=== PATIENT | male | born 1945 | race Caucasian/White ===

== ENCOUNTER 2017-03-11 00:56 | Observation (INO) | payer OTHER ==
[2017-03-11] MEDS ORDERED: Sodium Chloride 0.9% 1,000 ML IV ONE (01:10)
--- NOTE | 2017-03-11 01:10 | EDM.PDOC ---
ED HPI GENERAL MEDICAL PROBLEM - General Chief Complaint: Diabetic Complaint Stated Complaint: DIABETIC PROBLEMS Time Seen by Provider: 03/11/17 01:08 Source of Information: Reports: Patient - History of Present Illness INITIAL COMMENTS - FREE TEXT/NARRATIVE: HISTORY AND PHYSICAL: History of present illness: [] Patient presents via [facility] ambulance Was found unresponsive or altered blood in his yard he was working on some equipment, howard s known diabetic, apparently his family tried giving him Mountain Dew, on EMS arrival his glucose was 89. On glucose rechecked during the ride here from [facility] his glucose dipped to 39 and he was provided one amp of D50, glucose is 18 is on arrival Patient is alert and nonfocal at this time however is somewhat confused Review of systems: As per history of present illness and below otherwise all systems reviewed and negative. Past medical history: As per history of present illness and as reviewed below otherwise noncontributory. Surgical history: As per history of present illness and as reviewed below otherwise noncontributory. Social history: No reported history of drug or alcohol abuse. Family history: As per history of present illness and as reviewed below otherwise noncontributory. Physical exam: HEENT: Atraumatic, normocephalic, pupils reactive, negative for conjunctival pallor or scleral icterus, mucous membranes moist, throat clear, neck supple, nontender, trachea midline. Lungs: Clear to auscultation, breath sounds equal bilaterally, chest nontender. Heart: S1S2, regular, negative for clicks, rubs, or JVD. Abdomen: Soft, nondistended, nontender. Negative for masses or hepatosplenomegaly. Negative for costovertebral tenderness. Pelvis: Stable nontender. Genitourinary: Deferred. Rectal: Deferred. Extremities: Atraumatic, negative for cords or calf pain. Neurovascular unremarkable. Neuro: Awake, alert, oriented. Cranial nerves II through XII unremarkable. Cerebellum unremarkable. Motor and sensory unremarkable throughout. Exam nonfocal. Diagnostics: [] Lab as below EKG Chest one view Head CT no contrast Therapeutics: [] Liter normal saline bolus orange juice Impression: [] Hypoglycemia chronic histroy at baseline Definitive disposition and diagnosis as appropriate pending reevaluation and review of above. - Related Data Allergies Allergy/AdvReac Type Severity Reaction Status Date / Time latanoprost Allergy Cannot Verified 03/11/17 01:09 Remember latex Allergy Rash Uncoded 03/11/17 01:09 Home Meds: Home Meds Aspirin [Ecotrin] 1 tab PO DAILY 10/16/14 [History] Bimatoprost [Lumigan 0.03% Ophth Soln] 1 drop EYEBOTH BEDTIME 10/16/14 [History] Gabapentin [Neurontin] 300 mg PO 5XDAY 10/16/14 [History] Insulin Aspart [NovoLOG] 5 units SQ TIDMEALS 10/16/14 [History] Insulin Glarg,Human.Rec.Analog [Lantus] 35 units SQ BEDTIME 10/16/14 [History] Lisinopril 20 mg PO DAILY 10/16/14 [History] Metoprolol Tartrate 25 mg PO DAILY 10/16/14 [History] Omeprazole 20 mg PO DAILY PRN 10/16/14 [History] Sertraline [Zoloft] 50 mg PO DAILY 10/16/14 [History] Warfarin [Coumadin] 5 mg PO ASDIRECTED 10/16/14 [History] Warfarin [Coumadin] 7.5 mg PO ASDIRECTED 10/16/14 [History] atorvaSTATin [Lipitor] 40 mg PO BEDTIME 10/16/14 [History] Dorzolamide HCl/Timolol Maleat [Dorzolamide-Timolol Eye Drops] 1 drop OP BID [History] Ibuprofen 200 mg PO ASDIRECTED PRN 09/14/15 [History] Loratadine 10 mg PO DAILY PRN 09/14/15 [History] Polyvinyl Alcohol/Povidone [Artificial Tears Drops] 1 drop OP QID 09/14/15 [ History] Sildenafil [Viagra] 100 mg PO ASDIRECTED PRN 09/14/15 [History] Furosemide 10 mg PO DAILY 03/11/17 [History] Iron 65 mg PO DAILY 03/11/17 [History] Potassium Bicarbonate/Cit Ac [Potassium 25 Meq Tablet Eff] 20 meq PO DAILY 03/11 [History] Past Medical History - Past Health History Medical/Surgical History: Denies Medical/Surgical History Other Cardiovascular History: stent - Past Surgical History Other HEENT Surgeries/Procedures: eye surgery Social & Family History - Tobacco Use Smoking Status *Q: Never Smoker Second Hand Smoke Exposure: No - Alcohol Use Days Per Week of Alcohol Use: 1 Number of Drinks Per Day: 1 Total Drinks Per Week: 1 - Recreational Drug Use Recreational Drug Use: No ED ROS GENERAL - Review of Systems Review Of Systems: See Below ED EXAM GENERAL NO PERIP PULSE - Physical Exam Exam: See Below Course - Vital Signs Last Recorded V/S: Last Vital Signs Temp 35.7 C 03/11/17 02:28 Pulse 63 03/11/17 02:58 Resp 19 03/11/17 02:58 BP 154/85 H 03/11/17 02:58 Pulse Ox 95 03/11/17 02:58 - Orders/Labs/Meds Orders: Active Orders 24 hr Category Date Time Status Admission Status [Patient Status] [ADT] Stat ADT 03/11/17 03:25 Ordered EKG Documentation Completion [RC] STAT Care 03/11/17 01:06 Active Chest 1V Frontal [CR] Stat Exams 03/11/17 01:06 Taken Head wo Cont [CT] Stat Exams 03/11/17 01:06 Taken DRUG SCREEN, URINE [URCHEM] Stat Lab 03/11/17 01:06 Uncollected UA W/MICROSCOPIC [URIN] Stat Lab 03/11/17 01:06 Uncollected Sodium Chloride 0.9% [Normal Saline] 1,000 ml Med 03/11/17 03:30 Ordered IV STAT Medication Orders Sodium Chloride (Normal Saline) 1,000 mls @ 125 mls/hr IV STAT LILIANE Labs: Laboratory Tests 03/11/17 03/11/17 03/11/17 Range/Units 01:15 01:17 01:19 WBC 4.55 (4.0-11.0) K/uL RBC 3.86 L (4.50-5.90) M/uL Hgb 12.2 L (13.0-17.0) g/dL Hct 38.4 (38.0-50.0) % MCV 99.5 H (80.0-98.0) fL MCH 31.6 (27.0-32.0) pg MCHC 31.8 (31.0-37.0) g/dL RDW Std Deviation 52.7 (28.0-62.0) fl RDW Coeff of Juan 15 (11.0-15.0) % Plt Count 178 (150-400) K/uL MPV 10.40 (7.40-12.00) fL Neut % (Auto) 72.0 (48.0-80.0) % Lymph % (Auto) 12.3 L (16.0-40.0) % Forrest % (Auto) 13.8 (0.0-15.0) % Eos % (Auto) 1.5 (0.0-7.0) % Baso % (Auto) 0.4 (0.0-1.5) % Neut # (Auto) 3.3 (1.4-5.7) K/uL Lymph # (Auto) 0.6 (0.6-2.4) K/uL Forrest # (Auto) 0.6 (0.0-0.8) K/uL Eos # (Auto) 0.1 (0.0-0.7) K/uL Baso # (Auto) 0.0 (0.0-0.1) K/uL INR 2.34 H (0.86-1.11) Sodium (136-146) mmol/L Potassium (3.5-5.1) mmol/L Chloride (98-110) mmol/L Carbon Dioxide (21-31) mmol/L BUN (6.0-23.0) mg/dL Creatinine (0.6-1.5) mg/dL Est Cr Clr Drug Dosing mL/min Estimated GFR (MDRD) ml/min Glucose (60-110) mg/dL POC Glucose (60-110) mg/dL Calcium (8.8-10.8) mg/dL Total Bilirubin (0.1-1.5) mg/dL AST (5-40) IU/L ALT (8-54) IU/L Alkaline Phosphatase (40-150) Troponin I (0.0-0.29) NG/ML B-Natriuretic Peptide 662 H (<100) PG/ML Total Protein (6.0-8.0) g/dL Albumin (3.4-4.8) g/dL Globulin (2.0-3.5) g/dL Albumin/Globulin Ratio (1.3-2.8) Ethyl Alcohol mg/dL 03/11/17 03/11/17 03/11/17 Range/Units 01:19 01:19 01:46 WBC (4.0-11.0) K/uL RBC (4.50-5.90) M/uL Hgb (13.0-17.0) g/dL Hct (38.0-50.0) % MCV (80.0-98.0) fL MCH (27.0-32.0) pg MCHC (31.0-37.0) g/dL RDW Std Deviation (28.0-62.0) fl RDW Coeff of Juan (11.0-15.0) % Plt Count (150-400) K/uL MPV (7.40-12.00) fL Neut % (Auto) (48.0-80.0) % Lymph % (Auto) (16.0-40.0) % Forrest % (Auto) (0.0-15.0) % Eos % (Auto) (0.0-7.0) % Baso % (Auto) (0.0-1.5) % Neut # (Auto) (1.4-5.7) K/uL Lymph # (Auto) (0.6-2.4) K/uL Forrest # (Auto) (0.0-0.8) K/uL Eos # (Auto) (0.0-0.7) K/uL Baso # (Auto) (0.0-0.1) K/uL INR (0.86-1.11) Sodium 138 (136-146) mmol/L Potassium 4.5 (3.5-5.1) mmol/L Chloride 108 (98-110) mmol/L Carbon Dioxide 21 (21-31) mmol/L BUN 18 (6.0-23.0) mg/dL Creatinine 1.2 (0.6-1.5) mg/dL Est Cr Clr Drug Dosing 61.88 mL/min Estimated GFR (MDRD) > 60.0 ml/min Glucose 119 H (60-110) mg/dL POC Glucose 116 H (60-110) mg/dL Calcium 9.1 (8.8-10.8) mg/dL Total Bilirubin 0.7 (0.1-1.5) mg/dL AST 48 H (5-40) IU/L ALT 43 (8-54) IU/L Alkaline Phosphatase 252 H (40-150) Troponin I < 0.10 (0.0-0.29) NG/ML B-Natriuretic Peptide (<100) PG/ML Total Protein 7.5 (6.0-8.0) g/dL Albumin 4.2 (3.4-4.8) g/dL Globulin 3.3 (2.0-3.5) g/dL Albumin/Globulin Ratio 1.3 (1.3-2.8) Ethyl Alcohol < 10.0 mg/dL 03/11/17 03/11/17 03/11/17 Range/Units 02:23 02:42 03:09 WBC (4.0-11.0) K/uL RBC (4.50-5.90) M/uL Hgb (13.0-17.0) g/dL Hct (38.0-50.0) % MCV (80.0-98.0) fL MCH (27.0-32.0) pg MCHC (31.0-37.0) g/dL RDW Std Deviation (28.0-62.0) fl RDW Coeff of Juan (11.0-15.0) % Plt Count (150-400) K/uL MPV (7.40-12.00) fL Neut % (Auto) (48.0-80.0) % Lymph % (Auto) (16.0-40.0) % Forrest % (Auto) (0.0-15.0) % Eos % (Auto) (0.0-7.0) % Baso % (Auto) (0.0-1.5) % Neut # (Auto) (1.4-5.7) K/uL Lymph # (Auto) (0.6-2.4) K/uL Forrest # (Auto) (0.0-0.8) K/uL Eos # (Auto) (0.0-0.7) K/uL Baso # (Auto) (0.0-0.1) K/uL INR (0.86-1.11) Sodium (136-146) mmol/L Potassium (3.5-5.1) mmol/L Chloride (98-110) mmol/L Carbon Dioxide (21-31) mmol/L BUN (6.0-23.0) mg/dL Creatinine (0.6-1.5) mg/dL Est Cr Clr Drug Dosing mL/min Estimated GFR (MDRD) ml/min Glucose (60-110) mg/dL POC Glucose 68 82 94 (60-110) mg/dL Calcium (8.8-10.8) mg/dL Total Bilirubin (0.1-1.5) mg/dL AST (5-40) IU/L ALT (8-54) IU/L Alkaline Phosphatase (40-150) Troponin I (0.0-0.29) NG/ML B-Natriuretic Peptide (<100) PG/ML Total Protein (6.0-8.0) g/dL Albumin (3.4-4.8) g/dL Globulin (2.0-3.5) g/dL Albumin/Globulin Ratio (1.3-2.8) Ethyl Alcohol mg/dL Meds: Medications Generic Name Dose Route Start Last Admin Trade Name Freq PRN Reason Stop Dose Admin Sodium Chloride 1,000 mls @ 125 mls/hr 03/11/17 03:30 Normal Saline IV STAT LILIANE Discontinued Medications Generic Name Dose Route Start Last Admin Trade Name Freq PRN Reason Stop Dose Admin Dextrose/Water Confirm 03/11/17 01:12 03/11/17 01:14 Dextrose 50% In Water Administered 03/11/17 01:13 50 ml Dose Administration 50 ml .ROUTE .STK-MED ONE Dextrose/Water 50 ml 03/11/17 02:24 Dextrose 50% In Water IVPUSH 03/11/17 02:25 ONETIME ONE Enalaprilat 0.625 mg 03/11/17 02:05 03/11/17 02:17 Vasotec Iv IVPUSH 03/11/17 02:06 0.625 mg NOW STA Administration Sodium Chloride 1,000 mls @ 999 mls/hr 03/11/17 01:10 03/11/17 01:16 Normal Saline IV 03/11/17 02:10 999 mls/hr STAT ONE Administration Departure - Departure Time of Disposition: 03:27 Disposition: Admitted As Inpatient 68 Condition: fair Clinical Impression: Hypoglycemia, Adverse reaction to drug - Discharge Information Referrals: Hallie Carrasco, [facility] [Primary Care Provider] - Forms: ED Department Discharge - My Orders Last 24 Hours: My Active Orders 03/11/17 01:06 EKG Documentation Completion [RC] STAT Chest 1V Frontal [CR] Stat Head wo Cont [CT] Stat DRUG SCREEN, URINE [URCHEM] Stat UA W/MICROSCOPIC [URIN] Stat 03/11/17 03:25 Admission Status [Patient Status] [ADT] Stat 03/11/17 03:30 Sodium Chloride 0.9% [Normal Saline] 1,000 ml IV STAT - Assessment/Plan Last 24 Hours: My Active Orders 03/11/17 01:06 EKG Documentation Completion [RC] STAT Chest 1V Frontal [CR] Stat Head wo Cont [CT] Stat DRUG SCREEN, URINE [URCHEM] Stat UA W/MICROSCOPIC [URIN] Stat 03/11/17 03:25 Admission Status [Patient Status] [ADT] Stat 03/11/17 03:30 Sodium Chloride 0.9% [Normal Saline] 1,000 ml IV STAT
[2017-03-11] MEDS ORDERED: 50% Dextrose in Water 50 ML Syringe ONE (01:12)
[2017-03-11 01:46] LABS: CHLORIDE,CL 108 mmol/L (98-110); SODIUM,NA 138 mmol/L (136-146)
[2017-03-11] MEDS ORDERED: Enalaprilat 1.25 MG/ML SDV IVPUSH STA (02:05)
[2017-03-11] MEDS ORDERED: 50% Dextrose in Water 50 ML Syringe IVPUSH ONE (02:24)
[2017-03-11] MEDS ORDERED: Sodium Chloride 0.9% 1,000 ML IV SCH ×2 (03:30→04:30)
[2017-03-11] MEDS ORDERED: Ibuprofen 200 MG Tab PO PRN (04:40)
[2017-03-11] MEDS ORDERED: Loratadine 10 MG Tab PO PRN (04:40)
[2017-03-11] MEDS: Gabapentin 300 MG Cap PO SCH ×2 (06:48→10:24)
[2017-03-11] MEDS: Polyvinyl Alcohol 1.4% Ophth Soln 15 ML Bottle EYEBOTH SCH ×2 (07:13→11:07)
[2017-03-11] MEDS ORDERED: Furosemide 20 MG Tab PO SCH (09:00)
[2017-03-11] MEDS ORDERED: Metoprolol Tartrate 50 MG Tab PO SCH (09:00)
[2017-03-11] MEDS ORDERED: Potassium Chloride 20 MEQ Tab.ER PO SCH (09:00)
[2017-03-11] MEDS ORDERED: Warfarin 5 MG Tab PO SCH ×2 (09:00→14:00)
[2017-03-11] MEDS ORDERED: Aspirin 81 MG Tab.EC PO SCH (09:00)
[2017-03-11] MEDS ORDERED: Lisinopril 10 MG Tab PO SCH (09:00)
[2017-03-11] MEDS ORDERED: Omeprazole 20 MG Cap.CR PO PRN (09:00)
[2017-03-11] MEDS ORDERED: Ferrous Sulfate 325 MG Tab PO SCH (09:00)
[2017-03-11] MEDS ORDERED: Sertraline 100 MG Tab PO SCH (09:00)
[2017-03-11] MEDS ORDERED: Dorzolamide/Timolol 2%-0.5% Ophth Soln 10 ML Bottle EYEBOTH SCH ×2 (09:00)
[2017-03-11] MEDS ORDERED: Insulin Aspart 100 Units/ML 3 ML Pen SUBCUT STA ×2 (11:13→11:46)
[2017-03-11] MEDS ORDERED: Insulin Glargine,Human Rec. Analog 100 Units/ML 3 ML Pen SUBCUT SCH (12:00)
--- NOTE | 2017-03-11 12:03 | PCM.HP ---
H&P History of Present Illness - General Admit Problem/Dx: Admission Diagnosis/Problem Admission Diagnosis/Problem Hypoglycemia - History of Present Illness Initial Comments - Free Text/Narative: 71 yo male with pmh of diabetes who presented with a hypoglycemic episode. 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 He was found unresponsive in the field. He blood sugar was 89 on EMS arrival and recheck on EMS ride to [facility] was 39.. He received d50. His mentation improved and in the [facility] ED his blood sugar was 94 and he was given juice. He was monitored overnight here in the hospital and did not have any more hypoglycemic episodes. - Related Data Allergies/Adverse Reactions: Allergies Allergy/AdvReac Type Severity Reaction Status Date / Time latanoprost Allergy Cannot Verified 03/11/17 01:09 Remember latex Allergy Rash Uncoded 03/11/17 01:09 Home Medications: Home Meds Aspirin [Ecotrin] 1 tab PO DAILY 10/16/14 [History] Bimatoprost [Lumigan 0.03% Ophth Soln] 1 drop EYEBOTH BEDTIME 10/16/14 [History] Gabapentin [Neurontin] 300 mg PO 5XDAY 10/16/14 [History] Insulin Aspart [NovoLOG] 5 units SQ TIDMEALS 10/16/14 [History] Lisinopril 20 mg PO DAILY 10/16/14 [History] Metoprolol Tartrate 25 mg PO DAILY 10/16/14 [History] Omeprazole 20 mg PO DAILY PRN 10/16/14 [History] Sertraline [Zoloft] 50 mg PO DAILY 10/16/14 [History] Warfarin [Coumadin] 5 mg PO ASDIRECTED 10/16/14 [History] Warfarin [Coumadin] 7.5 mg PO ASDIRECTED 10/16/14 [History] atorvaSTATin [Lipitor] 40 mg PO BEDTIME 10/16/14 [History] Dorzolamide HCl/Timolol Maleat [Dorzolamide-Timolol Eye Drops] 1 drop OP BID [History] Ibuprofen 200 mg PO ASDIRECTED PRN 09/14/15 [History] Loratadine 10 mg PO DAILY PRN 09/14/15 [History] Polyvinyl Alcohol/Povidone [Artificial Tears Drops] 1 drop OP QID 09/14/15 [ History] Sildenafil [Viagra] 100 mg PO ASDIRECTED PRN 09/14/15 [History] Furosemide 10 mg PO DAILY 03/11/17 [History] Insulin Glarg,Human.Rec.Analog [Lantus] 20 units SQ BID #0 03/11/17 [Rx] Iron 65 mg PO DAILY 03/11/17 [History] Potassium Bicarbonate/Cit Ac [Potassium 25 Meq Tablet Eff] 20 meq PO DAILY 03/11 [History] Past Medical History - Past Health History Medical/Surgical History: Denies Medical/Surgical History Cardiovascular History: Reports: High Cholesterol, Hypertension Other Cardiovascular History: stent Endocrine/Metabolic History: Reports: Diabetes, Type I Other Oncologic History: lip CA 40years ago, completed radiation - Infectious Disease History Infectious Disease History: Reports: Chicken Pox - Past Surgical History Other HEENT Surgeries/Procedures: eye surgery Other Cardiovascular Surgeries/Procedures: open heart surgery, valve replacement Social & Family History - Family History Family Medical History: Noncontributory - Tobacco Use Smoking Status *Q: Never Smoker Second Hand Smoke Exposure: No - Caffeine Use Caffeine Use: Reports: Coffee Caffeine Use Comment: 2cups/day - Alcohol Use Days Per Week of Alcohol Use: 1 Number of Drinks Per Day: 1 Total Drinks Per Week: 1 - Recreational Drug Use Recreational Drug Use: No H&P Review of Systems - Review of Systems: Review Of Systems: See Below General: Reports: No Symptoms HEENT: Reports: No Symptoms Pulmonary: Reports: No Symptoms Cardiovascular: Reports: No Symptoms Gastrointestinal: Reports: No Symptoms Genitourinary: Reports: No Symptoms Musculoskeletal: Reports: No Symptoms Skin: Reports: No Symptoms Psychiatric: Reports: No Symptoms Neurological: Reports: No Symptoms Hematologic/Lymphatic: Reports: No Symptoms Immunologic: Reports: No Symptoms Exam - Exam Exam: See Below - Vital Signs Vital Signs: Last Vital Signs Temp 36.7 C 03/11/17 08:00 Pulse 77 03/11/17 08:55 Resp 20 03/11/17 08:00 BP 136/52 L 03/11/17 09:01 Pulse Ox 95 03/11/17 08:00 Weight: 88 kg - Exam General: Alert, Oriented, 4 Lungs: Clear to Auscultation, Normal Respiratory Effort Cardiovascular: Regular Rate, Regular Rhythm Abdomen: No: Tenderness Extremities: Normal Inspection - Patient Data Lab Results last 24 hrs: Laboratory Results - last 24 hr 03/11/17 03/11/17 03/11/17 Range/Units 04:08 04:30 04:30 POC Glucose 245 H (60-110) mg/dL Urine Color YELLOW Urine Appearance CLEAR Urine pH 5.5 (5.0-8.0) Ur Specific [place] 1.020 (1.001-1.035) Urine Protein NEGATIVE (NEGATIVE) mg/dL Urine Glucose (UA) NEGATIVE (NEGATIVE) mg/dL Urine Ketones NEGATIVE (NEGATIVE) mg/dL Urine Occult Blood TRACE-INTACT (NEGATIVE) Urine Nitrite NEGATIVE (NEGATIVE) Urine Bilirubin NEGATIVE (NEGATIVE) Urine Urobilinogen 0.2 (<2.0) EU/dL Ur Leukocyte Esterase NEGATIVE (NEGATIVE) Urine RBC 0-2 (0-2/HPF) Urine WBC 0-1 (0-5/HPF) Ur Epithelial Cells RARE (NONE-FEW) Urine Bacteria RARE (NEGATIVE) Urine Opiates Screen NEGATIVE (NEGATIVE) Ur Oxycodone Screen NEGATIVE (NEGATIVE) Urine Methadone Screen NEGATIVE (NEGATIVE) Ur Barbiturates Screen NEGATIVE (NEGATIVE) Ur Phencyclidine Scrn NEGATIVE (NEGATIVE) Ur Amphetamine Screen NEGATIVE (NEGATIVE) U Methamphetamines Scrn NEGATIVE (NEGATIVE) U Benzodiazepines Scrn NEGATIVE (NEGATIVE) U Cocaine Metab Screen NEGATIVE (NEGATIVE) U Marijuana (THC) Screen NEGATIVE (NEGATIVE) 03/11/17 Range/Units 06:55 POC Glucose 252 H (60-110) mg/dL Urine Color Urine Appearance Urine pH (5.0-8.0) Ur Specific [place] (1.001-1.035) Urine Protein (NEGATIVE) mg/dL Urine Glucose (UA) (NEGATIVE) mg/dL Urine Ketones (NEGATIVE) mg/dL Urine Occult Blood (NEGATIVE) Urine Nitrite (NEGATIVE) Urine Bilirubin (NEGATIVE) Urine Urobilinogen (<2.0) EU/dL Ur Leukocyte Esterase (NEGATIVE) Urine RBC (0-2/HPF) Urine WBC (0-5/HPF) Ur Epithelial Cells (NONE-FEW) Urine Bacteria (NEGATIVE) Urine Opiates Screen (NEGATIVE) Ur Oxycodone Screen (NEGATIVE) Urine Methadone Screen (NEGATIVE) Ur Barbiturates Screen (NEGATIVE) Ur Phencyclidine Scrn (NEGATIVE) Ur Amphetamine Screen (NEGATIVE) U Methamphetamines Scrn (NEGATIVE) U Benzodiazepines Scrn (NEGATIVE) U Cocaine Metab Screen (NEGATIVE) U Marijuana (THC) Screen (NEGATIVE) Result Diagrams: 03/11/17 01:15 03/11/17 01:19 *Q Meaningful Use (ADM) - VTE *Q VTE Criteria *Q: - Stroke *Q Stroke Criteria *Q: - AMI *Q AMI Criteria *Q: Problem List Initiated/Reviewed/Updated: Yes Orders Last 24hrs: Active Orders 24 hr Category Date Time Status Blood Glucose Check, Bedside [RC] Q3H Care 03/11/17 07:00 Active Communication Order [RC] ROUTINE Care 03/11/17 04:18 Active Ready for Discharge [RC] PER UNIT ROUTINE Care 03/11/17 11:49 Active ADA Diabetic [[place] [employer] Diet] [DIET Diet 03/11/17 Breakfast Active ] Aspirin [Halfprin] Med 03/11/17 09:00 Active 81 mg PO DAILY Bimatoprost Med 03/11/17 21:00 Active 1 drop EYEBOTH BEDTIME Ferrous Sulfate Med 03/11/17 09:00 Active 325 mg PO DAILY Furosemide [Lasix] Med 03/11/17 09:00 Active 10 mg PO DAILY Gabapentin [Neurontin] Med 03/11/17 07:00 Active 300 mg PO 5XDAY Ibuprofen [Motrin] Med 03/11/17 04:40 Active 200 mg PO DAILY PRN Insulin Glarg,Human.Rec.Analog [LantUS Solostar] Med 03/11/17 12:00 Active 20 units SUBCUT DAILY Lisinopril [Prinivil] Med 03/11/17 09:00 Active 20 mg PO DAILY Loratadine [Claritin] Med 03/11/17 04:40 Active 10 mg PO DAILY PRN Metoprolol Tartrate [Lopressor] Med 03/11/17 09:00 Active 25 mg PO DAILY Omeprazole Med 03/11/17 09:00 Active 20 mg PO DAILY PRN Patient's Own Medication [Ptom] Med 03/11/17 09:00 Active 0 each EYEBOTH BID Polyvinyl Alcohol [LiquiTears 1.4% Ophth Soln] Med 03/11/17 06:00 Active 0 ml EYEBOTH QID Potassium Chloride [Klor-Con M20] Med 03/11/17 09:00 Active 20 meq PO DAILY Sertraline [Zoloft] Med 03/11/17 09:00 Active 50 mg PO DAILY Sodium Chloride 0.9% [Normal Saline] 1,000 ml Med 03/11/17 04:30 Active IV ASDIRECTED Warfarin [Coumadin] Med 03/11/17 14:00 Active 5 mg PO Q7D@1400 Warfarin [Coumadin] Med 03/12/17 14:00 Active 7.5 mg PO SuMoTuWeThFr@1400 atorvaSTATin [Lipitor] Med 03/11/17 21:00 Active 40 mg PO BEDTIME Medication Orders Artificial Tears (Liquitears 1.4% Ophth Soln) 0 ml EYEBOTH QID [facility] Last Admin: 03/11/17 11:07 Dose: 1 drop Admin: 03/11/17 07:13 Dose: Aspirin (Halfprin) 81 mg PO DAILY [facility] Last Admin: 03/11/17 08:59 Dose: 81 mg Atorvastatin Calcium (Lipitor) 40 mg PO BEDTIME [facility] Ferrous Sulfate (Ferrous Sulfate) 325 mg PO DAILY [facility] Last Admin: 03/11/17 08:58 Dose: 325 mg Furosemide (Lasix) 10 mg PO DAILY [facility] Last Admin: 03/11/17 08:58 Dose: 10 mg Gabapentin (Neurontin) 300 mg PO 5XDAY [facility] Last Admin: 03/11/17 10:24 Dose: 300 mg Admin: 03/11/17 06:48 Dose: 300 mg Sodium Chloride (Normal Saline) 1,000 mls @ 125 mls/hr IV STAT [facility] Last Admin: 03/11/17 03:30 Dose: 125 mls/hr Sodium Chloride (Normal Saline) 1,000 mls @ 125 mls/hr IV ASDIRECTED [facility] Last Admin: 03/11/17 11:54 Dose: 125 mls/hr Ibuprofen (Motrin) 200 mg PO DAILY PRN PRN Reason: Pain Insulin Glargine (Lantus Solostar) 20 units SUBCUT DAILY [facility] Lisinopril (Prinivil) 20 mg PO DAILY [facility] Last Admin: 03/11/17 09:01 Dose: 20 mg Loratadine (Claritin) 10 mg PO DAILY PRN PRN Reason: Allergies Last Admin: 03/11/17 09:28 Dose: 10 mg Metoprolol Tartrate (Lopressor) 25 mg PO DAILY [facility] Last Admin: 03/11/17 08:55 Dose: 25 mg Non-Formulary Medication (Bimatoprost) 1 drop EYEBOTH BEDTIME [facility] Omeprazole (Omeprazole) 20 mg PO DAILY PRN PRN Reason: Abdominal Pain Dorzolamide/Timolol 2%-0.5% Ophth Soln 10 Ml Bottle 0 each EYEBOTH BID [facility] Last Admin: 03/11/17 09:51 Dose: Potassium Chloride (Klor-Con M20) 20 meq PO DAILY [facility] Last Admin: 03/11/17 09:53 Dose: 20 meq Sertraline HCl (Zoloft) 50 mg PO DAILY [facility] Last Admin: 03/11/17 08:59 Dose: 50 mg Warfarin Sodium (Coumadin) 5 mg PO Q7D@1400 [facility] Warfarin Sodium (Coumadin) 7.5 mg PO SuMoTuWeThFr@1400 [facility] Assessment/Plan Comment:: 71 yo male admitted for hypoglycemia from taking premeal insulin without eating. Patient was instructed on proper timing of insulin but he appears to have been doing well with his current regiment of lantus 20 units BID with premeal insulin. He was discharged home.
[2017-03-11 12:50] VITALS: BP 135/55
[2017-03-11] MEDS ORDERED: atorvaSTATin 40 MG Tab PO SCH (21:00)
[2017-03-11] MEDS ORDERED: Non-Formulary Medication 1 Each (Bimatoprost 1 DROP) EYEBOTH SCH (21:00)
[2017-03-12] MEDS ORDERED: Warfarin 2.5 MG Tab PO SCH (14:00)
--- NOTE | 2017-03-13 14:11 | CT ---
EXAM DATE: 03/11/17 PATIENT'S AGE: 71 Patient: IBIS LOPEZ Facility: [place], [place] Site . Site : 1945 Study: CT Head [id number]/20/2017 1:51:23 AM Ordering Physician: Doctor Kemp Final Report: INDICATION: Altered mental status TECHNIQUE: CT Head without i.v. contrast. COMPARISON: 12/26/2014. FINDINGS: CSF spaces: Within normal limits for age. Brain parenchyma: Small focus of encephalomalacia is present in the left frontal lobe and right parietal lobe. 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 Mild diffuse cortical atrophy is noted. There are low attenuation white matter changes, likely due to chronic microvascular disease. The brain parenchyma is normal in appearance with preservation of the alfred-white matter junction. No sign of mass, hemorrhage, or midline shift seen. Skull base and calvarium: The visualized paranasal sinuses are well aerated. The mastoid air cells are clear. The visualized orbits are grossly unremarkable. There is a gas containing band surrounding the left globe which may be due to scleral banding. No skull fractures are seen. IMPRESSION: 1. No evidence of acute infarction, intracranial hemorrhage, or mass effect seen. Dictated by Jase Doyle MD @ 03/11/2017 1:59:29 AM Dictated by: Jase Doyle MD @ 03/11/2017 02:00:39 (Electronic Signature) Report Signed by Proxy. CARLOS
--- NOTE | 2017-03-13 14:12 | CR ---
EXAM DATE: 03/11/17 PATIENT'S AGE: 71 Patient: IBIS LOPEZ Facility: [place], [place] Site . Site : 1945 Study: XRay Chest [id number]/20/2017 1:52:10 AM Ordering Physician: Doctor Kemp Final Report: INDICATION: Altered mental status TECHNIQUE: Chest radiograph 1 view COMPARISON: 09/14/2015. FINDINGS: Cardiovascular and mediastinum: Moderate stable cardiomegaly is present. The mediastinum is normal in appearance. The patient is status post median sternotomy and aortic valve replacement. Lungs and pleural spaces: Diffuse interstitial thickening and Joaquin B lines are present bilaterally. No sign of pleural effusion seen. No pneumothorax is identified. Bones and soft tissues: Displace, nonunited fracture of the mid right clavicle seen without change. IMPRESSION: 1. Diffuse interstitial thickening and Joaquin B lines are present bilaterally. This is compatible with interstitial pulmonary edema. Dictated by Jase Doyle MD @ 03/11/2017 1:56:11 AM Dictated by: Jase Doyle MD @ 03/11/2017 01:56:53 (Electronic Signature) Report Signed by Proxy. [facility]
== END 2017-03-11 12:55 | disposition home or self-care (01) ==
LOC: MW.ED 00:56 → MW.ICU 03:25
PROVIDERS: ADMIT Internal Medicine; ATTEND Internal Medicine
DX: E10.649 Type 1 diabetes mellitus with hypoglycemia without coma (principal); T38.3X5A Adverse effect of insulin and oral hypoglycemic [antidiabetic] drugs, initial encounter; E78.00 Pure hypercholesterolemia, unspecified; I10 Essential (primary) hypertension; Z91.040 Latex allergy status; Z79.01 Long term (current) use of anticoagulants; Z88.8 Allergy status to other drugs, medicaments and biological substances; Z79.82 Long term (current) use of aspirin; Z79.899 Other long term (current) drug therapy; Z85.818 Personal history of malignant neoplasm of other sites of lip, oral cavity, and pharynx; Z95.2 Presence of prosthetic heart valve; Z98.890 Other specified postprocedural states
CPT/HCPCS: 36415; 70450; 71010; 80053; 80305; 81001; 82962; 83880; 84484; 85025; 85610; 93005; 96361; 96374; 99285; A9270; G0378; G0480; J1815; J7040; J7060

== ENCOUNTER 2017-03-30 16:23 | Emergency (ER) | payer OTHER ==
--- NOTE | 2017-03-30 17:02 | EDM.PDOC ---
ED HPI GENERAL MEDICAL PROBLEM - General Chief Complaint: Lower Extremity Injury/Pain Stated Complaint: PT HAS LUMP ON LT LEG Time Seen by Provider: 03/30/17 16:52 Source of Information: Reports: Patient History Limitations: Reports: No Limitations - History of Present Illness INITIAL COMMENTS - FREE TEXT/NARRATIVE: HISTORY AND PHYSICAL: []71-year-old male presents with a "lump to his leg". Patient was sent from the [place] facility for evaluation History of Present Illness: [A couple weeks have gone by where this gentleman has noticed pain to his left leg now slight edema is present Chronic medical history includes #1 chromic chronic hypochromic anemia #2 depression #3 residential current use of anticoagulant warfarin No. 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 ] Review of Systems: As per history of present illness and below otherwise all systems reviewed and negative. Past medical history: As per history of present illness and as reviewed below otherwise noncontributory. Surgical history: As per history of present illness and as reviewed below otherwise noncontributory. Social history: No reported history of drug or alcohol abuse. Family history: As per history of present illness and as reviewed below otherwise noncontributory. Physical exam: Alert and oriented gentleman. is at bedside. Questions are answered appropriately. HEENT: Atraumatic, normocehpalic, pupils reactive, negative for conjunctival pallor or scleral icterus, mucous membranes moist, throat clear, neck supple, nontender, trachea midline. Lungs: Clear to auscultation, breath sounds equal bilaterally, chest non tender. Heart: S1S2, regular, negative for clicks, rubs, or JVD. Abdomen: Soft, nondistended, nontender. Negative for masses or hepatossplenmegaly. Negative for costovertebral tenderness. Pelvis: Stable nontender. Genitourinary: Deferred. Rectal: Deferred Extremities: Atraumatic, negative for cords or calf pain. Left inner leg from knee I has some erythema. Skin feels thickened. Pedal pulses are palpable Neurovascular unremarkable. Neuro: Awake, alert, oriented. Cranial nerves II through XII unremarkable. Cerebellum unremarkable. Motor and sensory unremarkable throughout. Exam nonfocal. Discussed with patient and his that there is no deep vein thrombosis. Cellulitis is a concern and he has had that in the past. Diagnostics: [Ultrasound left lower leg negative for DVT ] Therapeutics: [Rocephin IV] Impression: [Acute cellulitis] Plan: [Cephalexin 500 mg 3 times a day for the next 10 days Follow-up with your regular provider next week on Monday. Call tomorrow for an appointment] Definitive disposition and diagnosis as appropriate pending reevaluation and review of above. Onset: Gradual Duration: Day(s): Location: Reports: Lower Extremity, Left Quality: Reports: Ache Severity: Moderate Improves with: Reports: None Worsens with: Reports: None Context: Reports: Activity - Related Data Allergies Allergy/AdvReac Type Severity Reaction Status Date / Time latanoprost Allergy Cannot Verified 03/30/17 16:45 Remember latex Allergy Rash Uncoded 03/30/17 16:45 Home Meds: Home Meds Aspirin [Ecotrin] 1 tab PO DAILY 10/16/14 [History] Bimatoprost [Lumigan 0.03% Ophth Soln] 1 drop EYEBOTH BEDTIME 10/16/14 [History] Gabapentin [Neurontin] 300 mg PO DAY 10/16/14 [History] Insulin Aspart [NovoLOG] 5 units SQ TIDMEALS 10/16/14 [History] Lisinopril 20 mg PO DAILY 10/16/14 [History] Metoprolol Tartrate 25 mg PO DAILY 10/16/14 [History] Omeprazole 20 mg PO DAILY PRN 10/16/14 [History] Sertraline [Zoloft] 50 mg PO DAILY 10/16/14 [History] Warfarin [Coumadin] 5 mg PO ASDIRECTED 10/16/14 [History] Warfarin [Coumadin] 7.5 mg PO ASDIRECTED 10/16/14 [History] atorvaSTATin [Lipitor] 40 mg PO BEDTIME 10/16/14 [History] Dorzolamide HCl/Timolol Maleat [Dorzolamide-Timolol Eye Drops] 1 drop OP BID [History] Ibuprofen 200 mg PO ASDIRECTED PRN 09/14/15 [History] Loratadine 10 mg PO DAILY PRN 09/14/15 [History] Polyvinyl Alcohol/Povidone [Artificial Tears Drops] 1 drop OP QID 09/14/15 [ History] Sildenafil [Viagra] 100 mg PO ASDIRECTED PRN 09/14/15 [History] Furosemide 10 mg PO DAILY 03/11/17 [History] Insulin Glarg,Human.Rec.Analog [Lantus] 20 units SQ BID #0 03/11/17 [Rx] Iron 65 mg PO DAILY 03/11/17 [History] Potassium Bicarbonate/Cit Ac [Potassium 25 Meq Tablet Eff] 20 meq PO DAILY 03/11 [History] Past Medical History - Past Health History Medical/Surgical History: Denies Medical/Surgical History HEENT History: Reports: Impaired Vision, Retinal Detachment, Other (See Below) Other HEENT History: Blind in left eye Cardiovascular History: Reports: High Cholesterol, Hypertension, Stents Other Cardiovascular History: stent Respiratory History: Reports: None Gastrointestinal History: Reports: None Genitourinary History: Reports: None Musculoskeletal History: Reports: None Neurological History: Reports: None Psychiatric History: Reports: None Endocrine/Metabolic History: Reports: Diabetes, Type I Hematologic History: Reports: None Immunologic History: Reports: None Oncologic (Cancer) History: Reports: Other (See Below) Other Oncologic History: Lip CA 40 years ago, completed radiation Dermatologic History: Reports: None - Infectious Disease History Infectious Disease History: Reports: None - Past Surgical History Head Surgeries/Procedures: Reports: None HEENT Surgical History: Reports: Other (See Below) Other HEENT Surgeries/Procedures: eye surgery Cardiovascular Surgical History: Reports: Other (See Below) Other Cardiovascular Surgeries/Procedures: open heart surgery, valve replacement Respiratory Surgical History: Reports: None GI Surgical History: Reports: None Male Surgical History: Reports: None Endocrine Surgical History: Reports: None Neurological Surgical History: Reports: None Musculoskeletal Surgical History: Reports: None Dermatological Surgical History: Reports: None Social & Family History - Family History Family Medical History: Noncontributory - Tobacco Use Smoking Status *Q: Never Smoker Second Hand Smoke Exposure: No - Caffeine Use Caffeine Use: Reports: Coffee Caffeine Use Comment: 2cups/day - Alcohol Use Days Per Week of Alcohol Use: 1 Number of Drinks Per Day: 1 Total Drinks Per Week: 1 - Recreational Drug Use Recreational Drug Use: No Review of Systems - Review of Systems Review Of Systems: ROS reveals no pertinent complaints other than HPI. ED EXAM, GENERAL - Physical Exam Exam: See Below (see dictation) Course - Vital Signs Last Recorded V/S: Last Vital Signs Temp 36.6 C 03/30/17 16:41 Pulse 87 03/30/17 16:41 Resp 16 03/30/17 16:41 BP 105/61 03/30/17 16:41 Pulse Ox 98 03/30/17 16:41 - Orders/Labs/Meds Orders: Active Orders 24 hr Category Date Time Status Venous Doppler Lwr Ext Lt [US] Stat Exams 03/30/17 17:08 Taken Sodium Chloride 0.9% [Saline Flush] Med 03/30/17 17:04 Active 10 ml FLUSH ASDIRECTED PRN Sodium Chloride 0.9% [Saline Flush] Med 03/30/17 17:04 Active 2.5 ml FLUSH ASDIRECTED PRN Saline Lock Insert [OM.PC] Stat Oth 03/30/17 17:04 Ordered Medication Orders Sodium Chloride (Saline Flush) 10 ml FLUSH ASDIRECTED PRN PRN Reason: Keep Vein Open Last Admin: 03/30/17 17:27 Dose: 10 ml Sodium Chloride (Saline Flush) 2.5 ml FLUSH ASDIRECTED PRN PRN Reason: Keep Vein Open Last Admin: 03/30/17 17:27 Dose: 2.5 ml Labs: Laboratory Tests 03/30/17 03/30/17 Range/Units 17:20 17:20 WBC 4.04 (4.0-11.0) K/uL RBC 3.56 L (4.50-5.90) M/uL Hgb 11.0 L (13.0-17.0) g/dL Hct 34.7 L (38.0-50.0) % MCV 97.5 (80.0-98.0) fL MCH 30.9 (27.0-32.0) pg MCHC 31.7 (31.0-37.0) g/dL RDW Std Deviation 54.6 (28.0-62.0) fl RDW Coeff of Juan 15 (11.0-15.0) % Plt Count 133 L (150-400) K/uL MPV 9.90 (7.40-12.00) fL Neut % (Auto) 68.0 (48.0-80.0) % Lymph % (Auto) 16.6 (16.0-40.0) % [place] % (Auto) 9.9 (0.0-15.0) % Eos % (Auto) 5.0 (0.0-7.0) % Baso % (Auto) 0.5 (0.0-1.5) % Neut # (Auto) 2.8 (1.4-5.7) K/uL Lymph # (Auto) 0.7 (0.6-2.4) K/uL [place] # (Auto) 0.4 (0.0-0.8) K/uL Eos # (Auto) 0.2 (0.0-0.7) K/uL Baso # (Auto) 0.0 (0.0-0.1) K/uL Nucleated RBC % 0.0 /100WBC Nucleated RBCs # 0 K/uL Sodium 137 (136-146) mmol/L Potassium 4.4 (3.5-5.1) mmol/L Chloride 108 (98-110) mmol/L Carbon Dioxide 20 L (21-31) mmol/L BUN 27 H (6.0-23.0) mg/dL Creatinine 1.5 (0.6-1.5) mg/dL Est Cr Clr Drug Dosing 51.09 mL/min Estimated GFR (MDRD) 46.4 ml/min Glucose 200 H (60-110) mg/dL Calcium 8.1 L (8.8-10.8) mg/dL Total Bilirubin 1.0 (0.1-1.5) mg/dL AST 41 H (5-40) IU/L ALT 38 (8-54) IU/L Alkaline Phosphatase 252 H (40-150) Total Protein 6.4 (6.0-8.0) g/dL Albumin 3.6 (3.4-4.8) g/dL Globulin 2.8 (2.0-3.5) g/dL Albumin/Globulin Ratio 1.3 (1.3-2.8) Meds: Medications Generic Name Dose Route Start Last Admin Trade Name Freq PRN Reason Stop Dose Admin Sodium Chloride 10 ml 03/30/17 17:04 03/30/17 17:27 Saline Flush FLUSH 10 ml ASDIRECTED PRN Administration Keep Vein Open Sodium Chloride 2.5 ml 03/30/17 17:04 03/30/17 17:27 Saline Flush FLUSH 2.5 ml ASDIRECTED PRN Administration Keep Vein Open Discontinued Medications Generic Name Dose Route Start Last Admin Trade Name Krys PRN Reason Stop Dose Admin Ceftriaxone Sodium/Dextrose 1 50 mls @ 100 mls/hr 03/30/17 17:04 03/30/17 17: 27 gm/ Premix IV 03/30/17 17:33 100 mls/hr ONETIME ONE Administration Departure - Departure Time of Disposition: 18:40 Disposition: Home, Self-Care 01 Condition: good Clinical Impression: Cellulitis of left leg without foot - Discharge Information Forms: ED Department Discharge Additional Instructions: The following information is given to patients seen in the emergency department who are being discharged to home. This information is to outline your options for follow-up care. We provide all patients seen in our emergency department with a follow-up referral. The need for follow-up, as well as the timing and circumstances, are variable depending upon the specifics of your emergency department visit. If you don't have a primary care physician on staff, we will provide you with a referral. We always advise you to contact your personal physician following an emergency department visit to inform them of the circumstance of the visit and for follow-up with them and/or the need for any referrals to a consulting specialist. The emergency department will also refer you to a specialist when appropriate. This referral assures that you have the opportunity for followup care with a specialist. All of these measure are taken in an effort to provide you with optimal care, which includes your followup. Under all circumstances we always encourage you to contact your private physician who remains a resource for coordinating your care. When calling for followup care, please make the office aware that this follow-up is from your recent emergency room visit. If for any reason you are refused follow-up, please contact the [facility] emergency department at and asked to speak to the emergency department charge nurse. Prescription will be written for cephalexin and sent to [place] [facility] Follow-up with your primary care provider Monday, April 03, 2017 - My Orders Last 24 Hours: My Active Orders 03/30/17 17:04 Sodium Chloride 0.9% [Saline Flush] 10 ml FLUSH ASDIRECTED PRN Sodium Chloride 0.9% [Saline Flush] 2.5 ml FLUSH ASDIRECTED PRN Saline Lock Insert [OM.PC] Stat 03/30/17 17:08 Venous Doppler Lwr Ext Lt [US] Stat - Assessment/Plan Last 24 Hours: My Active Orders 03/30/17 17:04 Sodium Chloride 0.9% [Saline Flush] 10 ml FLUSH ASDIRECTED PRN Sodium Chloride 0.9% [Saline Flush] 2.5 ml FLUSH ASDIRECTED PRN Saline Lock Insert [OM.PC] Stat 03/30/17 17:08 Venous Doppler Lwr Ext Lt [US] Stat
[2017-03-30] MEDS ORDERED: cefTRIAXone 1 GM in Premix Bag 1 BAG IV ONE (17:04)
[2017-03-30] MEDS ORDERED: Sodium Chloride 0.9% 2.5 ML Syringe FLUSH PRN (17:04)
[2017-03-30] MEDS ORDERED: Sodium Chloride 0.9% 10 ML Syringe FLUSH PRN (17:04)
[2017-03-30 18:51] VITALS: BP 109/60
--- NOTE | 2017-03-31 10:56 | US ---
EXAM DATE: 03/30/17 PATIENT'S AGE: 71 Patient: IBIS LOPEZ Facility: [place], [place] Site . Site : 1945 Study: US Extremity Venous left [id number] 6:03:18 PM Ordering Physician: Doctor Kemp Final Report: INDICATION: LT LEG PAIN AND SWELLING TECHNIQUE: Ultrasound venous duplex lower left extremity. Compression venous exam was performed using alfred-scale, color Doppler, and spectral Doppler analysis. COMPARISON: None FINDINGS: Sonographic imaging demonstrates the left common femoral, deep femoral, superficial femoral, popliteal, posterior tibial and greater saphenous and the contralateral right common femoral veins to be fully compressible with normal color Doppler blood flow. Nonspecific subcutaneous edema. IMPRESSION: No evidence of deep venous thrombosis within the left lower extremity. Dictated by Phong Muñoz MD @ 03/30/2017 6:14:12 PM Dictated by: Phong Muñoz MD @ 03/30/2017 18:14:16 (Electronic Signature) Report Signed by Proxy. [facility]LAND HOSPITALEvelyn
== END 2017-03-30 18:53 | disposition home or self-care (01) ==
LOC: MW.ED 16:23
DX: L03.116 Cellulitis of left lower limb (principal); I10 Essential (primary) hypertension; E78.00 Pure hypercholesterolemia, unspecified; E10.9 Type 1 diabetes mellitus without complications; Z95.2 Presence of prosthetic heart valve; Z98.890 Other specified postprocedural states; Z85.819 Personal history of malignant neoplasm of unspecified site of lip, oral cavity, and pharynx; Z79.82 Long term (current) use of aspirin; Z79.01 Long term (current) use of anticoagulants; Z79.899 Other long term (current) drug therapy; Z91.040 Latex allergy status; Z91.09 Other allergy status, other than to drugs and biological substances
CPT/HCPCS: 36415; 80053; 85025; 93971; 96365; 99284; J0696; 99283

== ENCOUNTER 2017-08-22 11:49 | Emergency (ER) | payer OTHER ==
--- NOTE | 2017-08-22 13:10 | EDM.PDOC ---
ED HPI GENERAL MEDICAL PROBLEM - General Chief Complaint: General Stated Complaint: PT HIGH Time Seen by Provider: 08/22/17 11:51 Source of Information: Reports: Patient History Limitations: Reports: No Limitations - History of Present Illness INITIAL COMMENTS - FREE TEXT/NARRATIVE: History of present illness: [72-year-old male presenting to the ED with concerns of a long PT time. Patient is on an anticoagulant and [facility] his [facility]racted PT/INR] Review of systems: As per history of present illness and below otherwise all systems reviewed and negative. Past medical history: As per history of present illness and as reviewed below otherwise noncontributory. Surgical history: As per history of present illness and as reviewed below otherwise noncontributory. Social history: No reported history of drug or alcohol abuse. Family history: As per history of present illness and as reviewed below otherwise noncontributory. Physical exam: HEENT: Atraumatic, normocephalic, pupils reactive, negative for conjunctival pallor or scleral icterus, mucous membranes moist, throat clear, neck supple, nontender, trachea midline. Lungs: Clear to auscultation, breath sounds equal bilaterally, chest nontender. Heart: S1S2, regular, negative for clicks, rubs, or JVD. Abdomen: Soft, nondistended, nontender. Negative for masses or hepatosplenomegaly. Negative for costovertebral tenderness. Pelvis: Stable nontender. Genitourinary: Deferred. Rectal: Deferred. Extremities: Atraumatic, negative for cords or calf pain. Neurovascular unremarkable. Neuro: Awake, alert, oriented. Cranial nerves II through XII unremarkable. Cerebellum unremarkable. Motor and sensory unremarkable throughout. Exam nonfocal. Level reported to us is greater than 8 today's PT/INR is 7.22 Discussed with patient his options of staying in for observation/admission and potential reversal versus holding his medicine and checking back in 2 days for further recheck. Patient indicated he desired to go home declined admission and stated he would in fact return Monday at the latest for new blood draw and re-dosing of his Coumadin. Patient denied any dietary changes and indicated he had no idea why his Coumadin was off. Patient is autonomous, ambulates well, discussed concerns of risk for falling and head injury and subsequently the patient indicated he was going to go home because the back and take it easy the next couple days. Diagnostics: [PT/INR] Therapeutics: [] Impression: [Prolonged INR] Plan: [Discharge to home follow-up in 2 days for redraw and dosing evaluation] Definitive disposition and diagnosis as appropriate pending reevaluation and review of above. - Related Data Allergies Allergy/AdvReac Type Severity Reaction Status Date / Time latanoprost Allergy Cannot Verified 03/30/17 16:45 Remember latex Allergy Rash Uncoded 03/30/17 16:45 Home Meds: Home Meds Aspirin [Ecotrin] 1 tab PO DAILY 10/16/14 [History] Bimatoprost [Lumigan 0.03% Ophth Soln] 1 drop EYEBOTH BEDTIME 10/16/14 [History] Gabapentin [Neurontin] 300 mg PO 5XDAY 10/16/14 [History] Insulin Aspart [NovoLOG] 5 units SQ TIDMEALS 10/16/14 [History] Lisinopril 20 mg PO DAILY 10/16/14 [History] Metoprolol Tartrate 25 mg PO DAILY 10/16/14 [History] Omeprazole 20 mg PO DAILY PRN 10/16/14 [History] Sertraline [Zoloft] 50 mg PO DAILY 10/16/14 [History] Warfarin [Coumadin] 5 mg PO ASDIRECTED 10/16/14 [History] Warfarin [Coumadin] 7.5 mg PO ASDIRECTED 10/16/14 [History] atorvaSTATin [Lipitor] 40 mg PO BEDTIME 10/16/14 [History] Dorzolamide HCl/Timolol Maleat [Dorzolamide-Timolol Eye Drops] 1 drop OP BID [History] Ibuprofen 200 mg PO ASDIRECTED PRN 09/14/15 [History] Loratadine 10 mg PO DAILY PRN 09/14/15 [History] Polyvinyl Alcohol/Povidone [Artificial Tears Drops] 1 drop OP QID 09/14/15 [ History] Sildenafil [Viagra] 100 mg PO ASDIRECTED PRN 09/14/15 [History] Furosemide 10 mg PO DAILY 03/11/17 [History] Insulin Glarg,Human.Rec.Analog [Lantus] 20 units SQ BID #0 03/11/17 [Rx] Iron 65 mg PO DAILY 03/11/17 [History] Potassium Bicarbonate/Cit Ac [Potassium 25 Meq Tablet Eff] 20 meq PO DAILY 03/11 [History] Cephalexin [IMW: Cephalexin] 500 mg PO TID #30 cap 03/30/17 [Rx] Past Medical History - Past Health History Medical/Surgical History: Denies Medical/Surgical History HEENT History: Reports: Impaired Vision, Retinal Detachment, Other (See Below) Other HEENT History: Blind in left eye Cardiovascular History: Reports: High Cholesterol, Hypertension, Stents Other Cardiovascular History: stent Respiratory History: Reports: None Gastrointestinal History: Reports: None Genitourinary History: Reports: None Musculoskeletal History: Reports: None Neurological History: Reports: None Psychiatric History: Reports: None Endocrine/Metabolic History: Reports: Diabetes, Type I Hematologic History: Reports: None Immunologic History: Reports: None Oncologic (Cancer) History: Reports: Other (See Below) Other Oncologic History: Lip CA 40 years ago, completed radiation Dermatologic History: Reports: None - Infectious Disease History Infectious Disease History: Reports: None - Past Surgical History Head Surgeries/Procedures: Reports: None HEENT Surgical History: Reports: Other (See Below) Other HEENT Surgeries/Procedures: eye surgery Cardiovascular Surgical History: Reports: Other (See Below) Other Cardiovascular Surgeries/Procedures: open heart surgery, valve replacement Respiratory Surgical History: Reports: None GI Surgical History: Reports: None Male Surgical History: Reports: None Endocrine Surgical History: Reports: None Neurological Surgical History: Reports: None Musculoskeletal Surgical History: Reports: None Dermatological Surgical History: Reports: None Social & Family History - Family History Family Medical History: Noncontributory - Tobacco Use Smoking Status *Q: Never Smoker Second Hand Smoke Exposure: No - Caffeine Use Caffeine Use: Reports: Coffee Caffeine Use Comment: 2cups/day - Alcohol Use Days Per Week of Alcohol Use: 1 Number of Drinks Per Day: 1 Total Drinks Per Week: 1 - Recreational Drug Use Recreational Drug Use: No ED ROS GENERAL - Review of Systems Review Of Systems: See Below (See history of present illness) ED EXAM, GENERAL - Physical Exam Exam: See Below (See history of present illness) Course - Vital Signs Last Recorded V/S: Last Vital Signs Temp 36.2 C 08/22/17 11:52 Pulse 98 08/22/17 11:52 Resp 18 08/22/17 11:52 BP 118/54 L 08/22/17 11:52 Pulse Ox 100 08/22/17 11:52 - Orders/Labs/Meds Labs: Laboratory Tests 08/22/17 Range/Units 12:17 INR 7.22 H* (0.86-1.11) Departure - Departure Time of Disposition: 13:27 Disposition: Home, Self-Care 01 Condition: Good Clinical Impression: Prolonged INR - Discharge Information Referrals: PCP,Unknown [Primary Care Provider] - Forms: ED Department Discharge Additional Instructions: The following information is given to patients seen in the emergency department who are being discharged to home. This information is to outline your options for follow-up care. We provide all patients seen in our emergency department with a follow-up referral. The need for follow-up, as well as the timing and circumstances, are variable depending upon the specifics of your emergency department visit. If you don't have a primary care physician on staff, we will provide you with a referral. We always advise you to contact your personal physician following an emergency department visit to inform them of the circumstance of the visit and for follow-up with them and/or the need for any referrals to a consulting specialist. The emergency department will also refer you to a specialist when appropriate. This referral assures that you have the opportunity for follow-up care with a specialist. All of these measure are taken in an effort to provide you with optimal care, which includes your follow-up. Under all circumstances we always encourage you to contact your private physician who remains a resource for coordinating your care. When calling for follow-up care, please make the office aware that this follow-up is from your recent emergency room visit. If for any reason you are refused follow-up, please contact the [facility] Emergency Department at and asked to speak to the emergency department charge nurse. Return to have your blood drawn and INR/clotting time evaluated as discussed Do not take your Coumadin until instructed otherwise Return to ED as needed as discussed
[2017-08-22 14:03] VITALS: BP 105/55
== END 2017-08-22 13:50 | disposition home or self-care (01) ==
LOC: MW.ED 11:49
DX: R79.1 Abnormal coagulation profile (principal); I10 Essential (primary) hypertension; E78.00 Pure hypercholesterolemia, unspecified; E10.9 Type 1 diabetes mellitus without complications; Z79.4 Long term (current) use of insulin; Z95.2 Presence of prosthetic heart valve; Z79.01 Long term (current) use of anticoagulants; Z79.899 Other long term (current) drug therapy; Z79.82 Long term (current) use of aspirin; Z91.040 Latex allergy status
CPT/HCPCS: 36415; 85610; 99283; 99284

== ENCOUNTER 2017-09-07 15:46 | Emergency (ER) | payer OTHER ==
--- NOTE | 2017-09-07 17:11 | EDM.PDOC ---
ED HPI GENERAL MEDICAL PROBLEM - General Chief Complaint: Cardiovascular Problem Stated Complaint: SWOLLEN Time Seen by Provider: 09/07/17 16:40 Source of Information: Reports: Patient History Limitations: Reports: No Limitations - History of Present Illness INITIAL COMMENTS - FREE TEXT/NARRATIVE: History of present illness: [72-year-old male comes in complaining of swelling to lower extremities and the scrotal region] Review of systems: As per history of present illness and below otherwise all systems reviewed and negative. Past medical history: As per history of present illness and as reviewed below otherwise noncontributory. Surgical history: As per history of present illness and as reviewed below otherwise noncontributory. Social history: No reported history of drug or alcohol abuse. Family history: As per history of present illness and as reviewed below otherwise noncontributory. Physical exam: HEENT: Atraumatic, normocephalic, pupils reactive, negative for conjunctival pallor or scleral icterus, mucous membranes moist, throat clear, neck supple, nontender, trachea midline. Lungs: Clear to auscultation, breath sounds equal bilaterally, chest nontender. Heart: A. fib, negative for clicks, rubs, or JVD. Abdomen: Soft, nondistended, nontender. Negative for masses or hepatosplenomegaly. Negative for costovertebral tenderness. Pelvis: Stable nontender. Genitourinary: Deferred. Rectal: Deferred. Extremities: Atraumatic, negative for cords or calf pain. Neurovascular unremarkable. Neuro: Awake, alert, oriented. Cranial nerves II through XII unremarkable. Cerebellum unremarkable. Motor and sensory unremarkable throughout. Exam nonfocal. Patient is in A. fib which is chronic Slight elevation in BNP which is consistent with history Slight elevation potassium which will be lowered by the Lasix when patient is diuresed Trace bilateral pedal edema, mild amount of pelvic edema. Patient had had 2 units of packed red cells recently with his business information consultant due to low H&H but was not given additional Lasix and has subsequent edema Diagnostics: [CBC, CMP, BNP, PT/INR, chest x-ray, EKG] Therapeutics: [Lasix 40 mg IV] Impression: [Elevated BNP/patient with chronic known CHF] Plan: [40 mg of Lasix follow up with PCP] Definitive disposition and diagnosis as appropriate pending reevaluation and review of above. - Related Data Allergies Allergy/AdvReac Type Severity Reaction Status Date / Time latanoprost Allergy Cannot Verified 09/07/17 16:25 Remember latex Allergy Rash Uncoded 03/30/17 16:45 Home Meds: Home Meds Aspirin [Ecotrin] 1 tab PO DAILY 10/16/14 [History] Bimatoprost [Lumigan 0.03% Ophth Soln] 1 drop EYEBOTH BEDTIME 10/16/14 [History] Gabapentin [Neurontin] 600 mg PO .FIVE TIMES DAILY 10/16/14 [History] Insulin Aspart [NovoLOG] 5 units SQ TIDMEALS 10/16/14 [History] Lisinopril 20 mg PO DAILY 10/16/14 [History] Omeprazole 20 mg PO DAILY PRN 10/16/14 [History] Sertraline [Zoloft] 50 mg PO DAILY 10/16/14 [History] atorvaSTATin [Lipitor] 40 mg PO BEDTIME 10/16/14 [History] Dorzolamide HCl/Timolol Maleat [Dorzolamide-Timolol Eye Drops] 1 drop EYERT BID 09/14/15 [History] Ibuprofen 200 mg PO ASDIRECTED PRN 09/14/15 [History] Polyvinyl Alcohol/Povidone [Artificial Tears Drops] 1 drop OP QID 09/14/15 [ History] Sildenafil [Viagra] 50 mg PO .ONE HOUR PRIOR PRN 09/14/15 [History] Iron 325 mg PO DAILY 03/11/17 [History] Amiodarone [Cordarone] 200 mg PO DAILY 09/07/17 [History] Carvedilol 3.125 mg PO DAILY 09/07/17 [History] Folic Acid 1 mg PO DAILY 09/07/17 [History] Furosemide 40 mg PO BID 09/07/17 [History] Insulin Glarg,Human.Rec.Analog [Lantus] 15 units SQ BID 09/07/17 [History] Potassium Chloride [Klor-Con] 09/07/17 [History] Warfarin [Coumadin] 5 mg PO DAILY 09/07/17 [History] Past Medical History - Past Health History Medical/Surgical History: Denies Medical/Surgical History HEENT History: Reports: Impaired Vision, Retinal Detachment, Other (See Below) Other HEENT History: Blind in left eye Cardiovascular History: Reports: High Cholesterol, Hypertension, Stents Other Cardiovascular History: stent Respiratory History: Reports: None Gastrointestinal History: Reports: None Genitourinary History: Reports: None Musculoskeletal History: Reports: None Neurological History: Reports: None Psychiatric History: Reports: None Endocrine/Metabolic History: Reports: Diabetes, Type I Hematologic History: Reports: None Immunologic History: Reports: None Oncologic (Cancer) History: Reports: Other (See Below) Other Oncologic History: Lip CA 40 years ago, completed radiation Dermatologic History: Reports: None - Infectious Disease History Infectious Disease History: Reports: Chicken Pox, Measles, Mumps - Past Surgical History Head Surgeries/Procedures: Reports: None HEENT Surgical History: Reports: Other (See Below) Other HEENT Surgeries/Procedures: eye surgery Cardiovascular Surgical History: Reports: Other (See Below) Other Cardiovascular Surgeries/Procedures: open heart surgery, valve replacement Respiratory Surgical History: Reports: None GI Surgical History: Reports: None Male Surgical History: Reports: None Endocrine Surgical History: Reports: None Neurological Surgical History: Reports: None Musculoskeletal Surgical History: Reports: None Dermatological Surgical History: Reports: None Social & Family History - Family History Family Medical History: Noncontributory - Tobacco Use Smoking Status *Q: Never Smoker Second Hand Smoke Exposure: No - Caffeine Use Caffeine Use: Reports: Coffee Caffeine Use Comment: 2cups/day - Alcohol Use Days Per Week of Alcohol Use: 1 Number of Drinks Per Day: 1 Total Drinks Per Week: 1 - Recreational Drug Use Recreational Drug Use: No ED ROS GENERAL - Review of Systems Review Of Systems: See Below (. See history of present illness) ED EXAM, GENERAL - Physical Exam Exam: See Below (See history of present illness) Course - Vital Signs Last Recorded V/S: Last Vital Signs Temp 36.5 C 09/07/17 16:21 Pulse 72 09/07/17 16:21 Resp 20 09/07/17 16:21 BP 108/54 L 09/07/17 16:21 Pulse Ox 98 09/07/17 16:21 - Orders/Labs/Meds Orders: Active Orders 24 hr Category Date Time Status EKG Documentation Completion [RC] STAT Care 09/07/17 16:34 Active Chest 2V [CR] Stat Exams 09/07/17 16:34 Taken Saline Lock Insert [OM.PC] Stat Oth 09/07/17 16:34 Ordered Labs: Laboratory Tests 11/16/17 11/16/17 11/16/17 Range/Units 16:40 16:40 16:40 WBC 4.33 (4.0-11.0) K/uL RBC 3.23 L (4.50-5.90) M/uL Hgb 9.6 L (13.0-17.0) g/dL Hct 30.5 L (38.0-50.0) % MCV 94.4 (80.0-98.0) fL MCH 29.7 (27.0-32.0) pg MCHC 31.5 (31.0-37.0) g/dL RDW Std Deviation 57.9 (28.0-62.0) fl RDW Coeff of Juan 17 H (11.0-15.0) % Plt Count 162 (150-400) K/uL MPV 9.80 (7.40-12.00) fL Neut % (Auto) 75.8 (48.0-80.0) % Lymph % (Auto) 7.2 L (16.0-40.0) % Custer % (Auto) 13.6 (0.0-15.0) % Eos % (Auto) 3.2 (0.0-7.0) % Baso % (Auto) 0.2 (0.0-1.5) % Neut # (Auto) 3.3 (1.4-5.7) K/uL Lymph # (Auto) 0.3 L (0.6-2.4) K/uL Custer # (Auto) 0.6 (0.0-0.8) K/uL Eos # (Auto) 0.1 (0.0-0.7) K/uL Baso # (Auto) 0.0 (0.0-0.1) K/uL Nucleated RBC % 0.0 /100WBC Nucleated RBCs # 0 K/uL INR (0.86-1.11) Sodium 136 (136-146) mmol/L Potassium 5.3 H (3.5-5.1) mmol/L Chloride 107 (98-110) mmol/L Carbon Dioxide 22 (21-31) mmol/L BUN 57 H (6.0-23.0) mg/dL Creatinine 2.4 H (0.6-1.5) mg/dL Est Cr Clr Drug Dosing 31.44 mL/min Estimated GFR (MDRD) 26.9 ml/min Glucose 89 (60-110) mg/dL Calcium 8.4 L (8.8-10.8) mg/dL Total Bilirubin 0.7 (0.1-1.5) mg/dL AST 39 (5-40) IU/L ALT 37 (8-54) IU/L Alkaline Phosphatase 337 H (40-150) Troponin I < 0.10 (0.0-0.29) NG/ML B-Natriuretic Peptide 572 H (<100) PG/ML Total Protein 6.5 (6.0-8.0) g/dL Albumin 3.5 (3.4-4.8) g/dL Globulin 3.0 (2.0-3.5) g/dL Albumin/Globulin Ratio 1.2 L (1.3-2.8) // Range/Units 16:40 WBC (4.0-11.0) K/uL RBC (4.50-5.90) M/uL Hgb (13.0-17.0) g/dL Hct (38.0-50.0) % MCV (80.0-98.0) fL MCH (27.0-32.0) pg MCHC (31.0-37.0) g/dL RDW Std Deviation (28.0-62.0) fl RDW Coeff of Ujan (11.0-15.0) % Plt Count (150-400) K/uL MPV (7.40-12.00) fL Neut % (Auto) (48.0-80.0) % Lymph % (Auto) (16.0-40.0) % Custer % (Auto) (0.0-15.0) % Eos % (Auto) (0.0-7.0) % Baso % (Auto) (0.0-1.5) % Neut # (Auto) (1.4-5.7) K/uL Lymph # (Auto) (0.6-2.4) K/uL Custer # (Auto) (0.0-0.8) K/uL Eos # (Auto) (0.0-0.7) K/uL Baso # (Auto) (0.0-0.1) K/uL Nucleated RBC % /100WBC Nucleated RBCs # K/uL INR 2.37 H (0.86-1.11) Sodium (136-146) mmol/L Potassium (3.5-5.1) mmol/L Chloride (98-110) mmol/L Carbon Dioxide (21-31) mmol/L BUN (6.0-23.0) mg/dL Creatinine (0.6-1.5) mg/dL Est Cr Clr Drug Dosing mL/min Estimated GFR (MDRD) ml/min Glucose (60-110) mg/dL Calcium (8.8-10.8) mg/dL Total Bilirubin (0.1-1.5) mg/dL AST (5-40) IU/L ALT (8-54) IU/L Alkaline Phosphatase (40-150) Troponin I (0.0-0.29) NG/ML B-Natriuretic Peptide (<100) PG/ML Total Protein (6.0-8.0) g/dL Albumin (3.4-4.8) g/dL Globulin (2.0-3.5) g/dL Albumin/Globulin Ratio (1.3-2.8) Meds: Medications Discontinued Medications Generic Name Dose Route Start Last Admin Trade Name Freq PRN Reason Stop Dose Admin Furosemide 40 mg 09/07/17 17:38 09/07/17 17:49 Lasix IVPUSH 09/07/17 17:39 40 mg NOW ONE Administration Departure - Departure Time of Disposition: 18:08 Disposition: Home, Self-Care 01 Condition: Good Clinical Impression: Elevated brain natriuretic peptide (BNP) level Instructions: Edema, [id number], Atrial Fibrillation, [id number] Referrals: PCP,Unknown [Primary Care Provider] - Forms: ED Department Discharge Additional Instructions: The following information is given to patients seen in the emergency department who are being discharged to home. This information is to outline your options for follow-up care. We provide all patients seen in our emergency department with a follow-up referral. The need for follow-up, as well as the timing and circumstances, are variable depending upon the specifics of your emergency department visit. If you don't have a primary care physician on staff, we will provide you with a referral. We always advise you to contact your personal physician following an emergency department visit to inform them of the circumstance of the visit and for follow-up with them and/or the need for any referrals to a consulting specialist. The emergency department will also refer you to a specialist when appropriate. This referral assures that you have the opportunity for follow-up care with a specialist. All of these measure are taken in an effort to provide you with optimal care, which includes your follow-up. Under all circumstances we always encourage you to contact your private physician who remains a resource for coordinating your care. When calling for follow-up care, please make the office aware that this follow-up is from your recent emergency room visit. If for any reason you are refused follow-up, please contact the [facility] Emergency Department at and asked to speak to the emergency department charge nurse. Follow-up with your PCP as discussed Return to ED as needed as discussed - My Orders Last 24 Hours: My Active Orders 09/07/17 16:34 EKG Documentation Completion [RC] STAT Chest 2V [CR] Stat Saline Lock Insert [OM.PC] Stat - Assessment/Plan Last 24 Hours: My Active Orders 09/07/17 16:34 EKG Documentation Completion [RC] STAT Chest 2V [CR] Stat Saline Lock Insert [OM.PC] Stat
[2017-09-07 17:26] LABS: CHLORIDE,CL 107 mmol/L (98-110); SODIUM,NA 136 mmol/L (136-146)
[2017-09-07] MEDS ORDERED: Furosemide 40 MG/4 ML VIAL IVPUSH ONE (17:38)
[2017-09-07 18:51] VITALS: BP 102/65
--- NOTE | 2017-09-08 11:12 | CR ---
EXAM DATE: 09/07/17 PATIENT'S AGE: 72 Patient: IBIS LOPEZ Facility: [place], [place] Site . Site : 1945 Study: XRay Chest [id number]/16/2017 5:31:51 PM Ordering Physician: Doctor Kemp Final Report: INDICATION: Shortness of breath TECHNIQUE: Chest 2 views. COMPARISON: 03/11/2017 FINDINGS: Cardiovascular and mediastinum: Heart size and vasculature are normal in caliber and appearance. Mediastinum is within normal limits. Sternotomy wires and a prosthetic aortic valve noted. Lungs and pleural spaces: Stable prominent interstitial markings with Joaquin B- lines. No sign of infiltrate or mass. No sign of pleural effusion. No pneumothorax. Bones and soft tissues: No significant findings. IMPRESSION: Stable prominent interstitial markings with Joaquin B lines compared to prior study. Correlate with congestive changes clinically. Dictated by Tor Daly MD @ 09/07/2017 6:08:36 PM Dictated by: Tor Daly MD @ 09/07/2017 18:08:39 (Electronic Signature) Report Signed by Proxy. [facility]
== END 2017-09-07 18:22 | disposition home or self-care (01) ==
LOC: MW.ED 15:46
DX: R60.0 Localized edema (principal); R79.89 Other specified abnormal findings of blood chemistry; I11.0 Hypertensive heart disease with heart failure; I50.9 Heart failure, unspecified; I48.2 Chronic atrial fibrillation; E78.00 Pure hypercholesterolemia, unspecified; E10.9 Type 1 diabetes mellitus without complications; Z79.82 Long term (current) use of aspirin; Z79.899 Other long term (current) drug therapy; Z79.4 Long term (current) use of insulin; Z91.040 Latex allergy status; Z88.8 Allergy status to other drugs, medicaments and biological substances
CPT/HCPCS: 36415; 71020; 80053; 83880; 84484; 85025; 85610; 93005; 96374; 99284; J1940; 99283

== ENCOUNTER 2017-09-14 16:09 | Inpatient (IN) | payer OTHER, MEDICARE ==
--- NOTE | 2017-09-14 16:17 | EDM.PDOC ---
ED HPI GENERAL MEDICAL PROBLEM - General Stated Complaint: PT HAS FLUID Time Seen by Provider: 09/14/17 16:17 Source of Information: Reports: Patient History Limitations: Reports: No Limitations - History of Present Illness INITIAL COMMENTS - FREE TEXT/NARRATIVE: HISTORY AND PHYSICAL: History of present illness: Patient presents to the emergency room today with complaints of swelling to his lower extremities and testicular swelling. Patient was seen on 09/07/17 for the same complaints. At this time labs were done and patient was discharged to home after receiving 40 mg of Lasix. He was instructed to follow-up with his primary care provider. He has not seen a primary care provider since that visit. He states that the swelling to his testicles has actually decreased in size. He is concerned that he needs an antibiotic as he states he "pinched" his scrotum while sitting down and had some bleeding from an abrasion. Has increased SOB with exercision. He denies any fever, chills, chest pain or shortness of breath. Denies any abdominal pain, nausea, vomiting or diarrhea. Denies any dysuria or changes in his bowel pattern. No blood noted in his stool. Patient has a past medical history of chronic atrial fibrillation and congestive heart failure. States approximately 6 weeks ago he was in [place] and was given 2 units of packed red blood cells by his pediatric nurse practitioner due to a low H& H. Review of systems: As per history of present illness and below otherwise all systems reviewed and negative. Past medical history: As per history of present illness and as reviewed below otherwise noncontributory. Surgical history: As per history of present illness and as reviewed below otherwise noncontributory. Social history: No reported history of drug or alcohol abuse. Family history: As per history of present illness and as reviewed below otherwise noncontributory. Physical exam: Gen.: Well-developed and well-nourished 72-year-old male. Nontoxic appearing and in no acute distress. Alert and oriented. HEENT: Atraumatic, normocephalic, pupils reactive, negative for conjunctival pallor or scleral icterus, mucous membranes moist, throat clear, neck supple, nontender, trachea midline. Patient has a history of lip cancer, some facial asymetry to the lower jaw(patient reports a normal variance) Lungs: Clear to auscultation with diminished bases, breath sounds equal bilaterally, chest nontender. Heart: S1S2, regular, negative for clicks, rubs, or JVD. Abdomen: Soft, nondistended, nontender. Negative for masses or hepatosplenomegaly. Negative for costovertebral tenderness. Pelvis: Stable nontender. Genitourinary: As was done with a cardiothoracic anesthesia technician. There is moderate swelling to the scrotum. It is nontender to palpation. No open sores, lesions or wounds. Rectal: Deferred. Extremities: Atraumatic, moves all per self, negative for cords or calf pain. Neurovascular unremarkable. +2 pitting edema bilaterally to lower extremities Neuro: Awake, alert, oriented. Cranial nerves II through XII unremarkable. Cerebellum unremarkable. Motor and sensory unremarkable throughout. Exam nonfocal. Patient is wearing knee-high DHARMESH hose to bilateral lower extremities. +2 pitting edema is noted. He states he has not followed up with his primary caregiver since his visit with a pediatric nurse practitioner approximately 6 weeks ago. He reports there has been some changes to his Lasix. He believes he was taking it 3 times a day and is now currently taking it twice a day. Although him and his appear uncertain. Patient is very focused and concerned about an infection in his scrotum. I reassured the family and patient that we will do lab work and get an ultrasound of the scrotum and contents. A shunt and voice understanding and are agreeable to plan of care. The [facility] radiologist called to discuss the readings of the testicular ultrasound. He reports that there is a minimal hydrocele on the left with excessive skin thickening of the scrotum. Labs were reviewed from previous findings. BNP on 1116 was 572, today's reading with 697. was consulted on this case. She is agreeable to admit the patient as inpatient for telemetry. Patient is aware of this and is agreeable to stay overnight. Diagnostics: CBC, CMP, BN P, PT/INR, chest x-ray, EKG, UA, scrotal ultrasound Therapeutics: Lasix Impression: Peripheral edema Plan: Inpatient admission to [facility] with telemetry Definitive disposition and diagnosis as appropriate pending reevaluation and review of above. Duration: Week(s): - Related Data Allergies Allergy/AdvReac Type Severity Reaction Status Date / Time latanoprost Allergy Cannot Verified 09/14/17 16:20 Remember latex Allergy Rash Uncoded 09/14/17 16:20 Home Meds: Home Meds Bimatoprost [Lumigan 0.03% Ophth Soln] 1 drop EYEBOTH BEDTIME 10/16/14 [History] Gabapentin [Neurontin] 600 mg PO .FIVE TIMES DAILY 10/16/14 [History] Insulin Aspart [NovoLOG] 5 units SQ TIDMEALS 10/16/14 [History] Lisinopril 20 mg PO DAILY 10/16/14 [History] Omeprazole 20 mg PO DAILY PRN 10/16/14 [History] Sertraline [Zoloft] 50 mg PO DAILY 10/16/14 [History] atorvaSTATin [Lipitor] 40 mg PO BEDTIME 10/16/14 [History] Dorzolamide HCl/Timolol Maleat [Dorzolamide-Timolol Eye Drops] 1 drop EYERT BID 09/14/15 [History] Ibuprofen 200 mg PO ASDIRECTED PRN 09/14/15 [History] Iron 325 mg PO DAILY 03/11/17 [History] Amiodarone [Cordarone] 200 mg PO DAILY 09/07/17 [History] Carvedilol 3.125 mg PO DAILY 09/07/17 [History] Folic Acid 1 mg PO DAILY 09/07/17 [History] Furosemide 40 mg PO BID 09/07/17 [History] Insulin Glarg,Human.Rec.Analog [Lantus] 15 units SQ BID 09/07/17 [History] Warfarin [Coumadin] 5 mg PO DAILY 09/07/17 [History] Past Medical History - Past Health History Medical/Surgical History: Denies Medical/Surgical History HEENT History: Reports: Impaired Vision, Retinal Detachment, Other (See Below) Other HEENT History: Blind in left eye Cardiovascular History: Reports: High Cholesterol, Hypertension, Stents Other Cardiovascular History: stent Respiratory History: Reports: None Gastrointestinal History: Reports: None Genitourinary History: Reports: None Musculoskeletal History: Reports: None Neurological History: Reports: None Psychiatric History: Reports: None Endocrine/Metabolic History: Reports: Diabetes, Type I Hematologic History: Reports: None Immunologic History: Reports: None Oncologic (Cancer) History: Reports: Other (See Below) Other Oncologic History: Lip CA 40 years ago, completed radiation Dermatologic History: Reports: None - Infectious Disease History Infectious Disease History: Reports: Chicken Pox, Measles, Mumps - Past Surgical History Head Surgeries/Procedures: Reports: None HEENT Surgical History: Reports: Other (See Below) Other HEENT Surgeries/Procedures: eye surgery Cardiovascular Surgical History: Reports: Other (See Below) Other Cardiovascular Surgeries/Procedures: open heart surgery, valve replacement Respiratory Surgical History: Reports: None GI Surgical History: Reports: None Male Surgical History: Reports: None Endocrine Surgical History: Reports: None Neurological Surgical History: Reports: None Musculoskeletal Surgical History: Reports: None Dermatological Surgical History: Reports: None Social & Family History - Family History Family Medical History: Noncontributory - Tobacco Use Smoking Status *Q: Never Smoker Second Hand Smoke Exposure: No - Caffeine Use Caffeine Use: Reports: Coffee Caffeine Use Comment: 2cups/day - Alcohol Use Days Per Week of Alcohol Use: 1 Number of Drinks Per Day: 1 Total Drinks Per Week: 1 - Recreational Drug Use Recreational Drug Use: No ED ROS GENERAL - Review of Systems Review Of Systems: ROS reveals no pertinent complaints other than HPI. ED EXAM, GENERAL - Physical Exam Exam: See Below EKG INTERPRETATION EKG Date: 09/14/17 Rate (Beats/Min): 94 EKG Interpretation Comments: Sinus rhythm with right bundle branch block, heart rate 94. EKG that was done on 09/07/2017 showed atrial fibrillation with a right bundle branch block. Course - Vital Signs Last Recorded V/S: Last Vital Signs Temp 37.1 C 09/14/17 16:28 Pulse 92 09/14/17 16:28 Resp 18 09/14/17 18:11 BP 93/24 L 09/14/17 18:11 Pulse Ox 97 09/14/17 18:11 - Orders/Labs/Meds Orders: Active Orders 24 hr Category Date Time Status Admission Status [Patient Status] [ADT] Stat ADT 09/14/17 18:10 Ordered EKG Documentation Completion [RC] STAT Care 09/14/17 16:20 Active Chest 2V [CR] Stat Exams 09/14/17 16:20 Taken Scrotum and Contents [US] Stat Exams 09/14/17 16:38 Taken UA W/MICROSCOPIC [URIN] Stat Lab 09/14/17 16:38 Uncollected Sodium Chloride 0.9% [Saline Flush] Med 09/14/17 16:20 Active 10 ml FLUSH ASDIRECTED PRN Sodium Chloride 0.9% [Saline Flush] Med 09/14/17 16:20 Active 2.5 ml FLUSH ASDIRECTED PRN Saline Lock Insert [OM.PC] Stat Oth 09/14/17 16:20 Ordered Medication Orders Sodium Chloride (Saline Flush) 10 ml FLUSH ASDIRECTED PRN PRN Reason: Keep Vein Open Sodium Chloride (Saline Flush) 2.5 ml FLUSH ASDIRECTED PRN PRN Reason: Keep Vein Open Labs: Laboratory Tests 09/14/17 09/14/17 09/14/17 Range/Units 16:37 16:37 16:37 WBC 4.00 (4.0-11.0) K/uL RBC 3.33 L (4.50-5.90) M/uL Hgb 9.8 L (13.0-17.0) g/dL Hct 31.5 L (38.0-50.0) % MCV 94.6 (80.0-98.0) fL MCH 29.4 (27.0-32.0) pg MCHC 31.1 (31.0-37.0) g/dL RDW Std Deviation 58.8 (28.0-62.0) fl RDW Coeff of Juan 17 H (11.0-15.0) % Plt Count 147 L (150-400) K/uL MPV 10.00 (7.40-12.00) fL Neut % (Auto) 78.6 (48.0-80.0) % Lymph % (Auto) 10.0 L (16.0-40.0) % Rabun % (Auto) 8.8 (0.0-15.0) % Eos % (Auto) 2.3 (0.0-7.0) % Baso % (Auto) 0.3 (0.0-1.5) % Neut # (Auto) 3.2 (1.4-5.7) K/uL Lymph # (Auto) 0.4 L (0.6-2.4) K/uL Rabun # (Auto) 0.4 (0.0-0.8) K/uL Eos # (Auto) 0.1 (0.0-0.7) K/uL Baso # (Auto) 0.0 (0.0-0.1) K/uL Nucleated RBC % 0.0 /100WBC Nucleated RBCs # 0 K/uL INR 4.85 H (0.86-1.11) Sodium 130 L (136-146) mmol/L Potassium 5.4 H (3.5-5.1) mmol/L Chloride 102 (98-110) mmol/L Carbon Dioxide 19 L (21-31) mmol/L BUN 57 H (6.0-23.0) mg/dL Creatinine 2.5 H (0.6-1.5) mg/dL Est Cr Clr Drug Dosing TNP Estimated GFR (MDRD) 25.7 ml/min Glucose 201 H (60-110) mg/dL Calcium 8.3 L (8.8-10.8) mg/dL Total Bilirubin 0.9 (0.1-1.5) mg/dL AST 44 H (5-40) IU/L ALT 42 (8-54) IU/L Alkaline Phosphatase 372 H (40-150) B-Natriuretic Peptide (<100) PG/ML Total Protein 6.4 (6.0-8.0) g/dL Albumin 3.3 L (3.4-4.8) g/dL Globulin 3.1 (2.0-3.5) g/dL Albumin/Globulin Ratio 1.1 L (1.3-2.8) 09/14/17 Range/Units 16:37 WBC (4.0-11.0) K/uL RBC (4.50-5.90) M/uL Hgb (13.0-17.0) g/dL Hct (38.0-50.0) % MCV (80.0-98.0) fL MCH (27.0-32.0) pg MCHC (31.0-37.0) g/dL RDW Std Deviation (28.0-62.0) fl RDW Coeff of Juan (11.0-15.0) % Plt Count (150-400) K/uL MPV (7.40-12.00) fL Neut % (Auto) (48.0-80.0) % Lymph % (Auto) (16.0-40.0) % Rabun % (Auto) (0.0-15.0) % Eos % (Auto) (0.0-7.0) % Baso % (Auto) (0.0-1.5) % Neut # (Auto) (1.4-5.7) K/uL Lymph # (Auto) (0.6-2.4) K/uL Rabun # (Auto) (0.0-0.8) K/uL Eos # (Auto) (0.0-0.7) K/uL Baso # (Auto) (0.0-0.1) K/uL Nucleated RBC % /100WBC Nucleated RBCs # K/uL INR (0.86-1.11) Sodium (136-146) mmol/L Potassium (3.5-5.1) mmol/L Chloride (98-110) mmol/L Carbon Dioxide (21-31) mmol/L BUN (6.0-23.0) mg/dL Creatinine (0.6-1.5) mg/dL Est Cr Clr Drug Dosing Estimated GFR (MDRD) ml/min Glucose (60-110) mg/dL Calcium (8.8-10.8) mg/dL Total Bilirubin (0.1-1.5) mg/dL AST (5-40) IU/L ALT (8-54) IU/L Alkaline Phosphatase (40-150) B-Natriuretic Peptide 697 H (<100) PG/ML Total Protein (6.0-8.0) g/dL Albumin (3.4-4.8) g/dL Globulin (2.0-3.5) g/dL Albumin/Globulin Ratio (1.3-2.8) Meds: Medications Generic Name Dose Route Start Last Admin Trade Name Freq PRN Reason Stop Dose Admin Sodium Chloride 10 ml 09/14/17 16:20 Saline Flush FLUSH ASDIRECTED PRN Keep Vein Open Sodium Chloride 2.5 ml 09/14/17 16:20 Saline Flush FLUSH ASDIRECTED PRN Keep Vein Open Discontinued Medications Generic Name Dose Route Start Last Admin Trade Name Freq PRN Reason Stop Dose Admin Furosemide 40 mg 09/14/17 17:08 09/14/17 18:10 Lasix IVPUSH 09/14/17 17:09 40 mg NOW ONE Administration Departure - Departure Time of Disposition: 18:10 Disposition: Admitted As Inpatient 68 Clinical Impression: CHF, Congestive heart failure, Peripheral edema - Discharge Information Referrals: PCP,None [Primary Care Provider] - - My Orders Last 24 Hours: My Active Orders 09/14/17 16:20 EKG Documentation Completion [RC] STAT Chest 2V [CR] Stat Sodium Chloride 0.9% [Saline Flush] 10 ml FLUSH ASDIRECTED PRN Sodium Chloride 0.9% [Saline Flush] 2.5 ml FLUSH ASDIRECTED PRN Saline Lock Insert [OM.PC] Stat 09/14/17 16:38 Scrotum and Contents [US] Stat UA W/MICROSCOPIC [URIN] Stat 09/14/17 18:10 Admission Status [Patient Status] [ADT] Stat - Assessment/Plan Last 24 Hours: My Active Orders 09/14/17 16:20 EKG Documentation Completion [RC] STAT Chest 2V [CR] Stat Sodium Chloride 0.9% [Saline Flush] 10 ml FLUSH ASDIRECTED PRN Sodium Chloride 0.9% [Saline Flush] 2.5 ml FLUSH ASDIRECTED PRN Saline Lock Insert [OM.PC] Stat 09/14/17 16:38 Scrotum and Contents [US] Stat UA W/MICROSCOPIC [URIN] Stat 09/14/17 18:10 Admission Status [Patient Status] [ADT] Stat
[2017-09-14] MEDS ORDERED: Sodium Chloride 0.9% 10 ML Syringe FLUSH PRN ×2 (16:20→20:57)
[2017-09-14] MEDS ORDERED: Sodium Chloride 0.9% 2.5 ML Syringe FLUSH PRN ×2 (16:20→20:57)
[2017-09-14] MEDS ORDERED: Furosemide 40 MG/4 ML VIAL IVPUSH ONE (17:08)
[2017-09-14 17:09] LABS: CHLORIDE,CL 102 mmol/L (98-110); SODIUM,NA 130 mmol/L (136-146)
--- NOTE | 2017-09-14 19:50 | PCM.SN ---
- Free Text/Narrative Note: Called to [facility] room 221, on arrival the patient has regained consciousness and has stable VS at this time. Dr Avial currently at the bedside evaluating the patient.
[2017-09-14] MEDS ORDERED: Acetaminophen 325 MG Tab PO PRN (20:57)
[2017-09-14] MEDS ORDERED: Morphine 2 MG/ML Syringe IVPUSH PRN (20:57)
[2017-09-14] MEDS ORDERED: Albuterol/Ipratropium 3.0-0.5 MG/3 ML Neb Soln NEB PRN (20:57)
[2017-09-14] MEDS ORDERED: Omeprazole 20 MG Cap.CR PO PRN (21:15)
[2017-09-14] MEDS ORDERED: atorvaSTATin 40 MG Tab PO SCH (21:30)
[2017-09-14] MEDS: Insulin Glargine,Human Rec. Analog 100 Units/ML 3 ML Pen SUBCUT SCH (22:35)
[2017-09-14] MEDS: Gabapentin 300 MG Cap PO SCH (22:42)
[2017-09-14] MEDS: Bumetanide 1 MG/4 ML MDV IVPUSH SCH (22:50)
[2017-09-14] MEDS: Dorzolamide/Timolol 2%-0.5% Ophth Soln 10 ML Bottle EYERT SCH (22:58)
--- NOTE | 2017-09-14 23:08 | PCM.HP ---
H&P History of Present Illness - General Date of Service: 09/14/17 Admit Problem/Dx: Admission Diagnosis/Problem Admission Diagnosis/Problem CHF, Congestive heart failure Source of Information: Patient, Family History Limitations: Reports: No Limitations - History of Present Illness Initial Comments - Free Text/Narative: Patient 72 y old man [facility] due to frequent falls , patient losses balance , has edema 2 plus of b/l LE also edema of scrotum .Patient uses a walker at home and feels very weak. He has multiple episodes of syncope , not when he lays down. He is very SOB with exertion and as per his he was told by Dr. Kumar at [facility] he will need a defibrillator. Onset of Symptoms: Reports: Gradual Duration of Symptoms: Reports: Week(s): - Related Data Allergies/Adverse Reactions: Allergies Allergy/AdvReac Type Severity Reaction Status Date / Time latanoprost Allergy Cannot Verified 09/14/17 16:20 Remember latex Allergy Rash Uncoded 09/14/17 16:20 Home Medications: Home Meds Bimatoprost [Lumigan 0.03% Ophth Soln] 1 drop EYEBOTH BEDTIME 10/16/14 [History] Gabapentin [Neurontin] 600 mg PO .FIVE TIMES DAILY 10/16/14 [History] Insulin Aspart [NovoLOG] 5 units SQ TIDMEALS 10/16/14 [History] Lisinopril 20 mg PO DAILY 10/16/14 [History] Omeprazole 20 mg PO DAILY PRN 10/16/14 [History] Sertraline [Zoloft] 50 mg PO DAILY 10/16/14 [History] atorvaSTATin [Lipitor] 40 mg PO BEDTIME 10/16/14 [History] Dorzolamide HCl/Timolol Maleat [Dorzolamide-Timolol Eye Drops] 1 drop EYERT BID 09/14/15 [History] Ibuprofen 200 mg PO ASDIRECTED PRN 09/14/15 [History] Iron 325 mg PO DAILY 03/11/17 [History] Amiodarone [Cordarone] 200 mg PO DAILY 09/07/17 [History] Carvedilol 3.125 mg PO DAILY 09/07/17 [History] Folic Acid 1 mg PO DAILY 09/07/17 [History] Furosemide 40 mg PO BID 09/07/17 [History] Insulin Glarg,Human.Rec.Analog [Lantus] 15 units SQ BID 09/07/17 [History] Warfarin [Coumadin] 5 mg PO DAILY 09/07/17 [History] Past Medical History - Past Health History Medical/Surgical History: Denies Medical/Surgical History HEENT History: Reports: Impaired Vision, Retinal Detachment, Other (See Below) Other HEENT History: Blind in left eye Cardiovascular History: Reports: High Cholesterol, Hypertension, Stents Other Cardiovascular History: stent Respiratory History: Reports: None Gastrointestinal History: Reports: None Genitourinary History: Reports: None Musculoskeletal History: Reports: None Neurological History: Reports: None Psychiatric History: Reports: None Endocrine/Metabolic History: Reports: Diabetes, Type I Hematologic History: Reports: None Immunologic History: Reports: None Oncologic (Cancer) History: Reports: Other (See Below) Other Oncologic History: Lip CA 40 years ago, completed radiation Dermatologic History: Reports: None - Infectious Disease History Infectious Disease History: Reports: Chicken Pox, Measles, Mumps - Past Surgical History Head Surgeries/Procedures: Reports: None HEENT Surgical History: Reports: Other (See Below) Other HEENT Surgeries/Procedures: eye surgery Cardiovascular Surgical History: Reports: Other (See Below) Other Cardiovascular Surgeries/Procedures: open heart surgery, valve replacement Respiratory Surgical History: Reports: None GI Surgical History: Reports: None Male Surgical History: Reports: None Endocrine Surgical History: Reports: None Neurological Surgical History: Reports: None Musculoskeletal Surgical History: Reports: None Dermatological Surgical History: Reports: None Social & Family History - Family History Family Medical History: Noncontributory - Tobacco Use Smoking Status *Q: Never Smoker Second Hand Smoke Exposure: No - Caffeine Use Caffeine Use: Reports: Coffee Caffeine Use Comment: 2cups/day - Alcohol Use Days Per Week of Alcohol Use: 1 Number of Drinks Per Day: 1 Total Drinks Per Week: 1 - Recreational Drug Use Recreational Drug Use: No H&P Review of Systems - Review of Systems: Review Of Systems: See Below HEENT: Reports: No Symptoms Pulmonary: Reports: Shortness of Breath Cardiovascular: Reports: Dyspnea on Exertion, Orthopnea, Edema Gastrointestinal: Reports: No Symptoms, Other (increased abdominal girth) Musculoskeletal: Reports: No Symptoms Skin: Reports: Other (atrophic skin b/l lE, big toenail injury left LE) Neurological: Reports: Syncope, Difficulty Walking, Weakness, Gait Disturbance Exam - Exam Exam: See Below - Vital Signs Vital Signs: Last Vital Signs Temp 97.7 F 09/14/17 19:45 Pulse 94 09/14/17 19:45 Resp 16 09/14/17 19:45 BP 130/59 L 09/14/17 19:45 Pulse Ox 97 09/14/17 19:45 Weight: 195 lb - Exam Quality Assessment: Supplemental Oxygen General: Alert, Oriented, Other (blindness rt eye) Neck: Supple, Trachea Midline, JVD Lungs: Decreased Breath Sounds Cardiovascular: Regular Rate, Regular Rhythm, Other (metalic click) GI/Abdominal Exam: Normal Bowel Sounds, Soft, Distended Extremities: Other (b/l ;leg swelling , atrophic skin) - Patient Data Lab Results Last 24 hrs: Laboratory Results - last 24 hr 09/14/17 Range/Units 19:46 POC Glucose 165 H (60-110) mg/dL Result Diagrams: 09/15/17 06:21 09/15/17 06:21 EKG INTERPRETATION EKG Date: 09/14/17 Rhythm: NSR QRS: RBBB *Q Meaningful Use (ADM) - VTE *Q VTE Criteria *Q: - Stroke *Q Stroke Criteria *Q: - AMI *Q AMI Criteria *Q: - Problem List (1) Frequent falls SNOMED Code(s): 759460318 ICD Code: R29.6 - REPEATED FALLS Status: Acute Current Visit: Yes (2) CHF, Congestive heart failure SNOMED Code(s): 82953179 ICD Code: I50.9 - HEART FAILURE, UNSPECIFIED Status: Acute Current Visit : Yes (3) Peripheral edema SNOMED Code(s): 884708185 ICD Code: R60.9 - EDEMA, UNSPECIFIED Status: Acute Current Visit: Yes (4) Cellulitis of left leg without foot SNOMED Code(s): 892127765 ICD Code: L03.116 - CELLULITIS OF LEFT LOWER LIMB Status: Acute Current Visit: No (5) DM (diabetes mellitus) type I controlled, peripheral vascular disorder SNOMED Code(s): 91069639 ICD Code: E10.51 - TYPE 1 DIABETES W DIABETIC PERIPHERAL ANGIOPATH W/O GANGRENE Status: Acute Current Visit: Yes (6) H/O mitral valve replacement with mechanical valve SNOMED Code(s): 62698437895153 ICD Code: Z95.2 - PRESENCE OF PROSTHETIC HEART VALVE Status: Acute Current Visit: Yes (7) Supratherapeutic INR SNOMED Code(s): 005394871 ICD Code: R79.1 - ABNORMAL COAGULATION PROFILE Status: Acute Current Visit: Yes (8) Elevated alkaline phosphatase level Status: Acute Current Visit: Yes Problem List Initiated/Reviewed/Updated: Yes Orders Last 24hrs: Active Orders 24 hr Category Date Time Status Patient Status [ADT] Routine ADT 09/14/17 20:58 Active Bedrest Bedside Commode [RC] ASDIRECTED Care 09/14/17 20:57 Active Cardiac Monitoring [RC] CONTINUOUS Care 09/14/17 21:00 Active Oxygen Therapy [RC] PRN Care 09/14/17 20:58 Active Pulse Oximetry [RC] PRN Care 09/14/17 21:00 Active RT Aerosol Therapy [RC] ASDIRECTED Care 09/14/17 21:02 Active Up With Assistance [RC] ASDIRECTED Care 09/14/17 20:57 Active VTE/DVT Education [RC] PER UNIT ROUTINE Care 09/14/17 20:58 Active Vital Signs [RC] Q4H Care 09/14/17 20:58 Active PT Evaluation and Treatment [CONS] Routine Cons 09/14/17 20:57 Active 2 Gram Sodium Diet [DIET] Diet 09/14/17 Dinner Active Consistent Carbohydrate Diet [DIET] Diet 09/14/17 Dinner Active CV Carotid Duplex Ltd [US] Routine Exams 09/14/17 21:05 Ordered Head wo Cont [CT] Routine Exams 09/14/17 21:05 Ordered CBC W/O DIFF,HEMOGRAM [HEME] AM Lab 09/15/17 05:11 Ordered CBC W/O DIFF,HEMOGRAM [HEME] AM Lab 09/16/17 05:11 Ordered CBC W/O DIFF,HEMOGRAM [HEME] AM Lab 09/17/17 05:11 Ordered CBC W/O DIFF,HEMOGRAM [HEME] AM Lab 09/18/17 05:11 Ordered CBC W/O DIFF,HEMOGRAM [HEME] AM Lab 09/19/17 05:11 Ordered COMPREHENSIVE METABOLIC PN,CMP [CHEM] AM Lab 09/15/17 05:11 Ordered COMPREHENSIVE METABOLIC PN,CMP [CHEM] AM Lab 09/16/17 05:11 Ordered COMPREHENSIVE METABOLIC PN,CMP [CHEM] AM Lab 09/17/17 05:11 Ordered COMPREHENSIVE METABOLIC PN,CMP [CHEM] AM Lab 09/18/17 05:11 Ordered COMPREHENSIVE METABOLIC PN,CMP [CHEM] AM Lab 09/19/17 05:11 Ordered MAGNESIUM [CHEM] AM Lab 09/15/17 05:11 Ordered MAGNESIUM [CHEM] AM Lab 09/16/17 05:11 Ordered MAGNESIUM [CHEM] AM Lab 09/17/17 05:11 Ordered MAGNESIUM [CHEM] AM Lab 09/18/17 05:11 Ordered MAGNESIUM [CHEM] AM Lab 09/19/17 05:11 Ordered Acetaminophen [Tylenol] Med 09/14/17 20:57 Active 650 mg PO Q4H PRN Albuterol/Ipratropium [DuoNeb 3.0-0.5 MG/3 ML] Med 09/14/17 20:57 Active 3 ml NEB Q4HRRT PRN Amiodarone [Cordarone] Med 09/15/17 09:00 Active 200 mg PO DAILY Bimatoprost Med 09/15/17 21:00 Pending 1 drop EYEBOTH BEDTIME Bumetanide [Bumex] Med 09/14/17 21:15 Active 1 mg IVPUSH BID Carvedilol [Coreg] Med 09/15/17 09:00 Active 3.125 mg PO DAILY Dorzolamide/Timolol [Cosopt 2%-0.5% Ophth Soln] Med 09/14/17 21:15 Active 0 ml EYERT BID Ferrous Sulfate Med 09/15/17 09:00 Active 325 mg PO DAILY Folic Acid Med 09/15/17 09:00 Active 1 mg PO DAILY Gabapentin [Neurontin] Med 09/14/17 23:00 Active 300 mg PO 5XDAY Insulin Aspart [NovoLOG] Med 09/15/17 08:00 Active 5 unit SUBCUT TIDMEALS Insulin Glarg,Human.Rec.Analog [LantUS Solostar] Med 09/14/17 21:30 Active 15 units SUBCUT BID Lisinopril [Prinivil] Med 09/15/17 09:00 Active 20 mg PO DAILY Morphine Med 09/14/17 20:57 Active 2 mg IVPUSH Q2H PRN Omeprazole Med 09/14/17 21:15 Active 20 mg PO DAILY PRN Sertraline [Zoloft] Med 09/15/17 09:00 Active 50 mg PO DAILY Sodium Chloride 0.9% [Saline Flush] Med 09/14/17 20:57 Active 10 ml FLUSH ASDIRECTED PRN Sodium Chloride 0.9% [Saline Flush] Med 09/14/17 20:57 Active 2.5 ml FLUSH ASDIRECTED PRN atorvaSTATin [Lipitor] Med 09/14/17 21:30 Active 40 mg PO BEDTIME Peripheral IV Insertion Adult [OM.PC] Routine Oth 09/14/17 20:57 Ordered Resuscitation Status Routine Resus Stat 09/14/17 20:57 Ordered Medication Orders Acetaminophen (Tylenol) 650 mg PO Q4H PRN PRN Reason: Pain (Mild 1-3)/fever Albuterol/Ipratropium (Duoneb 3.0-0.5 Mg/3 Ml) 3 ml NEB Q4HRRT PRN PRN Reason: Shortness Of Breath/wheezing Amiodarone HCl (Cordarone) 200 mg PO DAILY [facility] Atorvastatin Calcium (Lipitor) 40 mg PO BEDTIME [facility] Last Admin: 09/14/17 22:42 Dose: 40 mg Bumetanide (Bumex) 1 mg IVPUSH BID [facility] Last Admin: 09/14/17 22:50 Dose: 1 mg Carvedilol (Coreg) 3.125 mg PO DAILY [facility] Dorzolamide/Timolol (Cosopt 2%-0.5% Ophth Soln) 0 ml EYERT BID [facility] Last Admin: 09/14/17 22:58 Dose: 1 drop Ferrous Sulfate (Ferrous Sulfate) 325 mg PO DAILY [facility] Folic Acid (Folic Acid) 1 mg PO DAILY [facility] Gabapentin (Neurontin) 300 mg PO 5XDAY [facility] Last Admin: 09/14/17 22:42 Dose: 300 mg Insulin Aspart (Novolog) 5 unit SUBCUT TIDMEALS [facility] Insulin Glargine (Lantus Solostar) 15 units SUBCUT BID [facility] Last Admin: 09/14/17 22:35 Dose: 15 unit Lisinopril (Prinivil) 20 mg PO DAILY [facility] Morphine Sulfate (Morphine) 2 mg IVPUSH Q2H PRN PRN Reason: Pain (severe 7-10) Stop: 09/15/17 21:00 Non-Formulary Medication (Bimatoprost) 1 drop EYEBOTH BEDTIME [facility] Omeprazole (Omeprazole) 20 mg PO DAILY PRN PRN Reason: HEARTBURN Last Admin: 09/14/17 22:42 Dose: 20 mg Sertraline HCl (Zoloft) 50 mg PO DAILY LILIANE Sodium Chloride (Saline Flush) 10 ml FLUSH ASDIRECTED PRN PRN Reason: Keep Vein Open Sodium Chloride (Saline Flush) 2.5 ml FLUSH ASDIRECTED PRN PRN Reason: Keep Vein Open Sodium Chloride (Saline Flush) 10 ml FLUSH ASDIRECTED PRN PRN Reason: Keep Vein Open Sodium Chloride (Saline Flush) 2.5 ml FLUSH ASDIRECTED PRN PRN Reason: Keep Vein Open Assessment/Plan Comment:: A/p Recurrent syncope - will admit patient to telemetry , will get medical records from [place] . Carotid doppler. Ct head, orthostatic Vs CHF exac - will diurese patient with Bumex 1 mg iv q 12h , supplement elctrolytes. DM u/c - continue home medication , insulin on sliding scale coverage HTN c - f/up BP , continue current home medications. Metallic valve mitral - hold warfarin at admission due to supratheraputic INR , F/up INR( goal is 2.5-3.5) frequent falls- Pt referral
[2017-09-15] MEDS: Gabapentin 300 MG Cap PO SCH ×3 (06:53→15:47)
[2017-09-15] MEDS: Dorzolamide/Timolol 2%-0.5% Ophth Soln 10 ML Bottle EYERT SCH (08:09)
[2017-09-15] MEDS: Insulin Glargine,Human Rec. Analog 100 Units/ML 3 ML Pen SUBCUT SCH (08:10)
[2017-09-15] MEDS: Insulin Aspart 100 Units/ML 3 ML Pen SUBCUT SCH ×2 (08:11→12:27)
[2017-09-15] MEDS ORDERED: Sertraline 100 MG Tab PO SCH (09:00)
[2017-09-15] MEDS ORDERED: Lisinopril 10 MG Tab PO SCH (09:00)
[2017-09-15] MEDS ORDERED: Ferrous Sulfate 325 MG Tab PO SCH (09:00)
[2017-09-15] MEDS ORDERED: Folic Acid 1 MG Tab PO SCH (09:00)
[2017-09-15] MEDS ORDERED: Amiodarone 200 MG Tab PO SCH (09:00)
[2017-09-15] MEDS ORDERED: Carvedilol 3.125 MG Tab PO SCH (09:00)
[2017-09-15] MEDS ORDERED: Sodium Polystyrene Sulfonate 15 GM/60 ML Susp 60 ML Bot PO ONE ×2 (09:34→09:36)
[2017-09-15] MEDS: Bumetanide 1 MG/4 ML MDV IVPUSH SCH (10:00)
--- NOTE | 2017-09-15 13:05 | US ---
EXAMINATION: Carotid US with alfred scale and duplex imaging. HISTORY: Syncope FINDINGS: Ultrasound examination of bilateral cervical carotid arteries was performed using alfred scale and dupl ex imaging. Scattered atheromatous plaque noted within the carotid arteries most prominent within th e bulbs. Antegrade flow noted within the vertebrals. These are the peak velocities in cm per second (systole), right and left respectively, by a comma: CCA (common carotid artery) - 84, 80 ICA (internal carotid artery) - 77, 127 ECA (External carotid artery) - 83, 188 ICA/CCA systolic ratio Right - 1.2 Left - 1.7 IMPRESSION: 1. There is less than 50% stenosis noted within the right internal carotid artery secondary to veloci ties. There is however prominent atheromatous plaque within the region of the right follow-up with si gnificant shadowing in the degree of underlying stenosis within this region is difficult to evaluate on grayscale imaging. 2. There is between 50 and 69% stenosis of the left internal carotid artery.
[2017-09-15] MEDS ORDERED: Ondansetron 4 MG/2 ML SDV IVPUSH ONE (13:16)
--- NOTE | 2017-09-15 13:30 | CR ---
EXAM DATE: 09/14/17 PATIENT'S AGE: 72 Patient: IBIS LOPEZ Facility: [place], [place] Site . Site : 1945 Study: XRay Chest [id number]/23/2017 5:06:19 PM Ordering Physician: Doctor Kemp Final Report: INDICATION: Lower extremity swelling. History of congestive heart failure. Technique: Two-view chest. Comparison: Two-view chest on 09/07/2017. Findings: Status post median sternotomy and valve replacement. Central pulmonary vessels at the upper limit of normal. Peripheral pulmonary vessels are normal. Lungs free of acute focal consolidation. No interstitial edema. Small amount of fluid blunts the left costophrenic angle. No acute bony abnormality. Impression: 1. Stable cardiomegaly. 2. Small left pleural effusion. Dictated by Leah Chowdhury MD @ Sep 14 2017 5:07PM (Electronic Signature) Report Signed by Proxy. CARLOS
--- NOTE | 2017-09-15 13:32 | US ---
EXAM DATE: 09/14/17 PATIENT'S AGE: 72 Patient: IBIS LOPEZ Facility: [place], [place] Site . Site : 1945 Study: US Testicle [id number]/23/2017 5:44:12 PM Ordering Physician: Doctor Kemp Final Report: INDICATION: SCROTAL SWELLING, REDNESS INDICATION: Scrotal pain and swelling. FINDINGS: The scrotal sac is thickened and edematous. The right testicle measures 3.3 x 2.6 x 2.9 cm and the left testicle measures 2.9 x 2.6 x 2.4 cm. The echotexture is within normal limits. The color Doppler blood flow, however, demonstrate decreased blood flow to both testes, right greater than left. There are some Doppler wave forms noted to both testes. Small hydrocele on the left is noted. Prominent right epididymis noted normal-appearing left epididymis is noted. IMPRESSION: 1. Marked soft tissue thickening and edema of the scrotal sac. 2. The grayscale appearance of the bilateral testes is within normal limits. No suspicious masses seen 3. There is relative decreased blood flow to the bilateral testes, right greater than left. Waveforms on Doppler examination are noted in both testes. 4. Prominence of the right epididymis is noted. The left epididymis is within normal limits. 5. Small hydrocele on the left is noted. 6. Findings have been discussed with the ordering provider. The patient has no signficant testicular pain, thereby making ischemia or infarction unlikely. Dictated by Reyes Nino MD @ 09/14/2017 5:59:29 PM Dictated by: Reyes Nino MD @ 09/14/2017 17:59:37 (Electronic Signature) Report Signed by Proxy. CARLOS
--- NOTE | 2017-09-15 13:42 | US ---
EXAM DATE: 09/14/17 PATIENT'S AGE: 72 Patient: IBIS LOPEZ Facility: [place], [place] Site . Site : 1945 Study: US Testicle [id number]/23/2017 5:44:12 PM Ordering Physician: Doctor Kemp Final Report: INDICATION: SCROTAL SWELLING, REDNESS INDICATION: Scrotal pain and swelling. FINDINGS: The scrotal sac is thickened and edematous. The right testicle measures 3.3 x 2.6 x 2.9 cm and the left testicle measures 2.9 x 2.6 x 2.4 cm. The echotexture is within normal limits. The color Doppler blood flow, however, demonstrate decreased blood flow to both testes, right greater than left. There are some Doppler wave forms noted to both testes. Small hydrocele on the left is noted. Prominent right epididymis noted normal-appearing left epididymis is noted. IMPRESSION: 1. Marked soft tissue thickening and edema of the scrotal sac. 2. The grayscale appearance of the bilateral testes is within normal limits. No suspicious masses seen 3. There is relative decreased blood flow to the bilateral testes, right greater than left. Waveforms on Doppler examination are noted in both testes. 4. Prominence of the right epididymis is noted. The left epididymis is within normal limits. 5. Small hydrocele on the left is noted. 6. Findings have been discussed with the ordering provider. The patient has no signficant testicular pain, thereby making ischemia or infarction unlikely. Dictated by Reyes Nino MD @ 09/14/2017 5:59:29 PM Dictated by: Reyes Nino MD @ 09/14/2017 17:59:37 (Electronic Signature) Report Signed by Proxy. CARLOS
--- NOTE | 2017-09-15 14:09 | CT ---
EXAM DATE: 09/14/17 PATIENT'S AGE: 72 Patient: IBIS LOPEZ Facility: [place], [place] Site . Site : 1945 Study: CT Head [id number]/23/2017 11:54:04 PM Ordering Physician: Austin Gonzalez Final Report: INDICATION: Syncope INDICATION: Syncope TECHNIQUE: CT head without contrast. COMPARISON: 03/11/2017 FINDINGS: CSF spaces: Within normal limits for age. Brain parenchyma: The alfred-white differentiation is normal. No sign of mass, hemorrhage, or midline shift. Skull base and calvarium: The visualized paranasal sinuses and mastoid air cells demonstrate no acute or significant findings. The visualized orbits are grossly unremarkable. Probable scleral buckle is noted. No skull fractures. IMPRESSION: Unremarkable noncontrast head CT. Stable appearance of the brain compared to . Dictated by Tor Daly MD @ 09/15/2017 12:21:17 AM Dictated by: Tor Daly MD @ 09/15/2017 00:21:23 (Electronic Signature) Report Signed by Proxy. [facility]
[2017-09-15 15:47] VITALS: BP 110/68
--- NOTE | 2017-09-15 15:53 | PCM.DCSUM1 ---
Discharge Summary - Hospital Course Free Text/Narrative:: Patient admitted in the hospital because of frequent falls and syncopes , edema of b/l LE. Patient on diuretics at home was switched to iv bumex. At arrival from ER patient had a syncope while being transfered in bed. His eyes rolled over and his face became cyanotic. Code blue was called but patient came around by himself after about 1 minute . No seizure activity noted. Patient had another syncope while attempting to go to restroom with assistance. he roled his eye over and turned blue , his blood pressure dropped to 60 systolic / 30 dyastolic. No arrhythmia on diagnostic cardiac sonographer seen during the syncope. Code blue was called again , and patient BP normalized by itself. He was also started on NS iv bolus. Patient was placed in bed and I have called [facility] [place] and patient was transferred to Er, accepting physician was Dr. Rodriguez. Patient was being followed there by Dr. Simpson and he recommended previously patient to have defibrillator , as per my discussion with patient and his . HPI Initial Comments: Patient 72 y old man , [facility] presented [facility] due to frequent falls , patient losses balance , has edema 2 plus of b/l LE also edema of scrotum .Patient uses a walker at home and feels very weak. He has multiple episodes of syncope , not when he lays down. He is very SOB with exertion and as per his he was told by Dr. Kumar at [place] he will need a defibrillator. - Discharge Data Discharge Date: 09/15/17 Discharge Disposition: DC/Tfer to Acute Hospital 02 Condition: Fair - Discharge Diagnosis/Problem(s) (1) Frequent falls SNOMED Code(s): 874254518 ICD Code: R29.6 - REPEATED FALLS Status: Acute (2) CHF, Congestive heart failure SNOMED Code(s): 51150442 ICD Code: I50.9 - HEART FAILURE, UNSPECIFIED Status: Acute (3) Peripheral edema SNOMED Code(s): 734401080 ICD Code: R60.9 - EDEMA, UNSPECIFIED Status: Acute (4) Cellulitis of left leg without foot SNOMED Code(s): 939274607 ICD Code: L03.116 - CELLULITIS OF LEFT LOWER LIMB Status: Acute (5) DM (diabetes mellitus) type I controlled, peripheral vascular disorder SNOMED Code(s): 75231985 ICD Code: E10.51 - TYPE 1 DIABETES W DIABETIC PERIPHERAL ANGIOPATH W/O GANGRENE Status: Acute (6) H/O mitral valve replacement with mechanical valve SNOMED Code(s): 31775437232668 ICD Code: Z95.2 - PRESENCE OF PROSTHETIC HEART VALVE Status: Acute (7) Supratherapeutic INR SNOMED Code(s): 595869230 ICD Code: R79.1 - ABNORMAL COAGULATION PROFILE Status: Acute (8) Elevated alkaline phosphatase level Status: Acute - Patient Summary/Data Consults: Consultations 09/14/17 20:57 PT Evaluation and Treatment [CONS] Routine - Patient Instructions Diet: Heart Healthy Diet, Diabetic Diet Activity: As Tolerated Showering/Bathing: May Shower - Discharge Plan Home Medications: Home Meds Bimatoprost [Lumigan 0.03% Ophth Soln] 1 drop EYEBOTH BEDTIME 10/16/14 [History] Gabapentin [Neurontin] 600 mg PO .FIVE TIMES DAILY 10/16/14 [History] Insulin Aspart [NovoLOG] 5 units SQ TIDMEALS 10/16/14 [History] Lisinopril 20 mg PO DAILY 10/16/14 [History] Omeprazole 20 mg PO DAILY PRN 10/16/14 [History] Sertraline [Zoloft] 50 mg PO DAILY 10/16/14 [History] atorvaSTATin [Lipitor] 40 mg PO BEDTIME 10/16/14 [History] Dorzolamide HCl/Timolol Maleat [Dorzolamide-Timolol Eye Drops] 1 drop EYERT BID 09/14/15 [History] Ibuprofen 200 mg PO ASDIRECTED PRN 09/14/15 [History] Iron 325 mg PO DAILY 03/11/17 [History] Amiodarone [Cordarone] 200 mg PO DAILY 09/07/17 [History] Carvedilol 3.125 mg PO DAILY 09/07/17 [History] Folic Acid 1 mg PO DAILY 09/07/17 [History] Furosemide 40 mg PO BID 09/07/17 [History] Insulin Glarg,Human.Rec.Analog [Lantus] 15 units SQ BID 09/07/17 [History] Warfarin [Coumadin] 5 mg PO DAILY 09/07/17 [History] Patient Handouts: Edema, Heart Failure, [id number] - Discharge Summary/Plan Comment DC Time >30 min.: Yes - General Info Date of Service: 09/15/17 Admission Dx/Problem (Free Text: Admission Diagnosis/Problem Admission Diagnosis/Problem CHF, Congestive heart failure recurrent syncope - Review of Systems General: Reports: Weakness HEENT: Reports: No Symptoms Pulmonary: Reports: Shortness of Breath Cardiovascular: Reports: Dyspnea on Exertion, Orthopnea, Edema, Lightheadedness , Other (syncope) Gastrointestinal: Reports: No Symptoms Musculoskeletal: Reports: No Symptoms (atrophic) Skin: Reports: Other (atrophic) Neurological: Reports: No Symptoms - Patient Data Vitals - Most Recent: Last Vital Signs Temp 97.1 F 09/15/17 15:45 Pulse 95 09/15/17 15:45 Resp 20 09/15/17 15:45 BP 110/68 09/15/17 15:45 Pulse Ox 98 09/15/17 15:45 Weight - Most Recent: 195 lb I&O - Last 24 hours: Intake & Output 09/15/17 09/15/17 09/15/17 06:59 14:59 22:59 Intake Total 500 Output Total 375 Balance 125 Lab Results - Last 24 hrs: Laboratory Results - last 24 hr 09/14/17 09/14/17 09/15/17 Range/Units 19:46 22:34 05:41 WBC (4.0-11.0) K/uL RBC (4.50-5.90) M/uL Hgb (13.0-17.0) g/dL Hct (38.0-50.0) % MCV (80.0-98.0) fL MCH (27.0-32.0) pg MCHC (31.0-37.0) g/dL RDW Std Deviation (28.0-62.0) fl RDW Coeff of Juan (11.0-15.0) % Plt Count (150-400) K/uL MPV (7.40-12.00) fL Nucleated RBC % /100WBC Nucleated RBCs # K/uL Sodium (136-146) mmol/L Potassium (3.5-5.1) mmol/L Chloride (98-110) mmol/L Carbon Dioxide (21-31) mmol/L BUN (6.0-23.0) mg/dL Creatinine (0.6-1.5) mg/dL Est Cr Clr Drug Dosing mL/min Estimated GFR (MDRD) ml/min Glucose (60-110) mg/dL POC Glucose 165 H 192 H 281 H (60-110) mg/dL Calcium (8.8-10.8) mg/dL Magnesium (1.5-2.3) mEq/L Total Bilirubin (0.1-1.5) mg/dL AST (5-40) IU/L ALT (8-54) IU/L Alkaline Phosphatase (40-150) Total Protein (6.0-8.0) g/dL Albumin (3.4-4.8) g/dL Globulin (2.0-3.5) g/dL Albumin/Globulin Ratio (1.3-2.8) 09/15/17 09/15/17 09/15/17 Range/Units 06:21 06:21 11:23 WBC 3.87 L (4.0-11.0) K/uL RBC 3.23 L (4.50-5.90) M/uL Hgb 9.4 L (13.0-17.0) g/dL Hct 30.2 L (38.0-50.0) % MCV 93.5 (80.0-98.0) fL MCH 29.1 (27.0-32.0) pg MCHC 31.1 (31.0-37.0) g/dL RDW Std Deviation 58.5 (28.0-62.0) fl RDW Coeff of Juan 17 H (11.0-15.0) % Plt Count 147 L (150-400) K/uL MPV 10.70 (7.40-12.00) fL Nucleated RBC % 0.0 /100WBC Nucleated RBCs # 0 K/uL Sodium 132 L (136-146) mmol/L Potassium 5.8 H (3.5-5.1) mmol/L Chloride 103 (98-110) mmol/L Carbon Dioxide 20 L (21-31) mmol/L BUN 63 H (6.0-23.0) mg/dL Creatinine 2.8 H (0.6-1.5) mg/dL Est Cr Clr Drug Dosing 26.94 mL/min Estimated GFR (MDRD) 22.5 ml/min Glucose 302 H (60-110) mg/dL POC Glucose 197 H (60-110) mg/dL Calcium 7.9 L (8.8-10.8) mg/dL Magnesium 2.0 (1.5-2.3) mEq/L Total Bilirubin 0.8 (0.1-1.5) mg/dL AST 42 H (5-40) IU/L ALT 43 (8-54) IU/L Alkaline Phosphatase 404 H (40-150) Total Protein 5.8 L (6.0-8.0) g/dL Albumin 3.2 L (3.4-4.8) g/dL Globulin 2.6 (2.0-3.5) g/dL Albumin/Globulin Ratio 1.2 L (1.3-2.8) 09/15/ Range/Units 13:15 WBC (4.0-11.0) K/uL RBC (4.50-5.90) M/uL Hgb (13.0-17.0) g/dL Hct (38.0-50.0) % MCV (80.0-98.0) fL MCH (27.0-32.0) pg MCHC (31.0-37.0) g/dL RDW Std Deviation (28.0-62.0) fl RDW Coeff of Juan (11.0-15.0) % Plt Count (150-400) K/uL MPV (7.40-12.00) fL Nucleated RBC % /100WBC Nucleated RBCs # K/uL Sodium (136-146) mmol/L Potassium (3.5-5.1) mmol/L Chloride (98-110) mmol/L Carbon Dioxide (21-31) mmol/L BUN (6.0-23.0) mg/dL Creatinine (0.6-1.5) mg/dL Est Cr Clr Drug Dosing mL/min Estimated GFR (MDRD) ml/min Glucose (60-110) mg/dL POC Glucose 241 H (60-110) mg/dL Calcium (8.8-10.8) mg/dL Magnesium (1.5-2.3) mEq/L Total Bilirubin (0.1-1.5) mg/dL AST (5-40) IU/L ALT (8-54) IU/L Alkaline Phosphatase (40-150) Total Protein (6.0-8.0) g/dL Albumin (3.4-4.8) g/dL Globulin (2.0-3.5) g/dL Albumin/Globulin Ratio (1.3-2.8) Med Orders - Current: Current Medications Acetaminophen (Tylenol) 650 mg PO Q4H PRN PRN Reason: Pain (Mild 1-3)/fever Albuterol/Ipratropium (Duoneb 3.0-0.5 Mg/3 Ml) 3 ml NEB Q4HRRT PRN PRN Reason: Shortness Of Breath/wheezing Amiodarone HCl (Cordarone) 200 mg PO DAILY [facility] Last Admin: 09/15/17 08:08 Dose: 200 mg Atorvastatin Calcium (Lipitor) 40 mg PO BEDTIME [facility] Last Admin: 09/14/17 22:42 Dose: 40 mg Bumetanide (Bumex) 1 mg IVPUSH BID [facility] Last Admin: 09/15/17 10:00 Dose: 1 mg Carvedilol (Coreg) 3.125 mg PO DAILY [facility] Last Admin: 09/15/17 08:15 Dose: 3.125 mg Dorzolamide/Timolol (Cosopt 2%-0.5% Ophth Soln) 0 ml EYERT BID [facility] Last Admin: 09/15/17 08:09 Dose: 1 drop Ferrous Sulfate (Ferrous Sulfate) 325 mg PO DAILY [facility] Last Admin: 09/15/17 08:09 Dose: 325 mg Folic Acid (Folic Acid) 1 mg PO DAILY [facility] Last Admin: 09/15/17 08:08 Dose: 1 mg Gabapentin (Neurontin) 300 mg PO 5XDAY [facility] Last Admin: 09/15/17 15:47 Dose: 300 mg Insulin Aspart (Novolog) 5 unit SUBCUT TIDMEALS [facility] Last Admin: 09/15/17 12:27 Dose: 5 units Insulin Glargine (Lantus Solostar) 15 units SUBCUT BID [facility] Last Admin: 09/15/17 08:10 Dose: 15 unit Lisinopril (Prinivil) 20 mg PO DAILY [facility] Last Admin: 09/15/17 08:17 Dose: Not Given Morphine Sulfate (Morphine) 2 mg IVPUSH Q2H PRN PRN Reason: Pain (severe 7-10) Stop: 09/15/17 21:00 Omeprazole (Omeprazole) 20 mg PO DAILY PRN PRN Reason: HEARTBURN Last Admin: 09/14/17 22:42 Dose: 20 mg Bimatoprost 0.03% 1 (Drop) 0 each EYEBOTH BEDTIME [facility] Sertraline HCl (Zoloft) 50 mg PO DAILY [facility] Last Admin: 09/15/17 08:07 Dose: 50 mg Sodium Chloride (Saline Flush) 10 ml FLUSH ASDIRECTED PRN PRN Reason: Keep Vein Open Sodium Chloride (Saline Flush) 2.5 ml FLUSH ASDIRECTED PRN PRN Reason: Keep Vein Open Sodium Chloride (Saline Flush) 10 ml FLUSH ASDIRECTED PRN PRN Reason: Keep Vein Open Sodium Chloride (Saline Flush) 2.5 ml FLUSH ASDIRECTED PRN PRN Reason: Keep Vein Open Discontinued Medications Furosemide (Lasix) 40 mg IVPUSH NOW ONE Stop: 09/14/17 17:09 Last Admin: 09/14/17 18:10 Dose: 40 mg Ondansetron HCl (Zofran) 4 mg IVPUSH ONETIME ONE Stop: 09/15/17 13:17 Last Admin: 09/15/17 13:21 Dose: 4 mg Sodium Polystyrene Sulfonate (Kayexalate) 30 gm PO ONETIME ONE Stop: 09/15/17 09:35 Last Admin: 09/15/17 10:01 Dose: 30 gm Sodium Polystyrene Sulfonate (Kayexalate) 30 gm PO ONETIME ONE Stop: 09/15/17 09:37 - Exam General: Reports: Alert, Oriented HEENT: Reports: Pupils Equal, Pupils Reactive Neck: Reports: Supple, Trachea Midline, JVD Lungs: Reports: Clear to Auscultation, Normal Respiratory Effort Cardiovascular: Reports: Regular Rate, Regular Rhythm (metalic click ) GI/Abdominal Exam: Normal Bowel Sounds, Soft, Non-Tender, No Organomegaly, No Distention, No Abnormal Bruit, No Mass Neurological: Reports: No New Focal Deficit Psy/Mental Status: Reports: Alert *Q Meaningful Use (DIS) - VTE *Q VTE Criteria *Q: - Stroke *Q Stroke Criteria *Q: - AMI *Q AMI Criteria *Q:
[2017-09-15] MEDS ORDERED: BIMATOPROST 0.03% EYEBOTH SCH (21:00)
== END 2017-09-15 16:43 | DRG 603 ==
LOC: MW.ED 16:09 → MW.MS 18:10 → MW.ED 18:22
PROVIDERS: ADMIT Internal Medicine; ATTEND Internal Medicine
DX: L03.116 Cellulitis of left lower limb (principal); R60.9 Edema, unspecified; R55 Syncope and collapse; N50.89 Other specified disorders of the male genital organs; I50.9 Heart failure, unspecified; R79.1 Abnormal coagulation profile; E78.00 Pure hypercholesterolemia, unspecified; E10.9 Type 1 diabetes mellitus without complications; I10 Essential (primary) hypertension; I48.91 Unspecified atrial fibrillation; R29.6 Repeated falls; R79.89 Other specified abnormal findings of blood chemistry; E10.51 Type 1 diabetes mellitus with diabetic peripheral angiopathy without gangrene; I45.10 Unspecified right bundle-branch block; Z85.819 Personal history of malignant neoplasm of unspecified site of lip, oral cavity, and pharynx; Z91.040 Latex allergy status; Z88.8 Allergy status to other drugs, medicaments and biological substances; Z79.01 Long term (current) use of anticoagulants; Z95.2 Presence of prosthetic heart valve; Z79.899 Other long term (current) drug therapy; Z79.4 Long term (current) use of insulin
CPT/HCPCS: 36415; 70450; 70450-26; 71020; 71020-26; 76870; 76870-26; 80053; 81001; 82962; 83735; 83880; 85025; 85027; 85610; 93005; 93880; 93880-26; 93976; 93976-26; 96374; 97161-GP; 99283; 99285-25; A9270-GY; J1815-GY; J1940; J2405